=== PATIENT | male | born 1975 | race Caucasian/White ===

== ENCOUNTER → 2017-03-16 | Outpatient (CLI) | payer MEDICAID, OTHER ==
[~2017-03-16] MED LIST: Gadobenate Dimeglumine 529 MG/ML 20 ML SDV IV ONE
--- NOTE | 2017-03-19 14:21 | MR ---
EXAM DATE: 03/16/17 PATIENT'S AGE: 42 Patient: NATALIE DE PAZ Facility: [place], [place] Site Site : [id number] Study: MRI Head [id number]/2017 4:29:20 PM Ordering Physician: cruz lobmardo Final Report: Indication: Migraine headaches. Comparison: None. Technique: Multiplanar T1, T2, FLAIR and diffusion-weighted imaging. post gadolinium T1 weighted sequences. Findings: Normal brain parenchymal morphology. There are multiple discrete T2/FLAIR signal hyperintense lesions within the periventricular and subcortical white matter of both cerebral hemispheres within appearance and distribution compatible with the mildly in plaques of multiple sclerosis. Total 5 matter lesions is greater than 10. No infratentorial white matter lesions. Corresponding mild T1 hypointense lesion load. No corresponding enhancement to suggest active demyelination. Otherwise, normal brain parenchymal morphology. No intracranial hemorrhage. No abnormal ventricular dilatation. No restricted diffusion to suggest acute ischemia. Bilateral orbits are unremarkable. Normal appearing sella. Visualized paranasal sinuses mastoid air cells are unremarkable. Impression: 1. Multiple T2/FLAIR signal hyperintense lesions within the white matter within appearance and distribution compatible with the mildly and plaques of multiple sclerosis. 2. Mild T1 hypointense lesion load. No corresponding enhancement to suggest active demyelination. 3. No acute intracranial abnormality. Dictated by All Bradford MD @ Mar 16 2017 5:54PM (Electronic Signature) Report Signed by Proxy. [facility] HOSPITALStephanie
== END ==
LOC: MW.MRI 15:36
PROVIDERS: ATTEND Physician Assistant
DX: G43.109 Migraine with aura, not intractable, without status migrainosus (principal)
CPT/HCPCS: 70553; 70553-26; A9577

== ENCOUNTER 2017-11-15 06:39 | Day surgery (SDC) | payer MEDICAID, OTHER ==
[~2017-11-15 06:39] MED LIST changes: +Clindamycin Phosphate in D5W 300 MG in Premix Bag 1 BAG IV ONE; -Gadobenate Dimeglumine 529 MG/ML 20 ML SDV IV ONE; +Lactated Ringers 1,000 ML IV SCH; +Sodium Chloride 0.9% 10 ML Syringe FLUSH PRN; +Sodium Chloride 0.9% 2.5 ML Syringe FLUSH PRN
[2017-11-15] MEDS ORDERED: Clindamycin Phosphate in D5W 300 MG in Premix Bag 1 BAG IV ONE ×2 (07:15)
[2017-11-15] MEDS ORDERED: Scopolamine 1.5 MG Transdermal Patch TRDERM PRN (07:24)
[2017-11-15] MEDS ORDERED: Propofol 200 MG/20 ML SDV ONE ×2 (07:26→09:19)
[2017-11-15] MEDS ORDERED: Lidocaine 2% 5 ML SDV ONE (07:26)
[2017-11-15] MEDS ORDERED: Midazolam 1 MG/ML 2 ML SDV ONE (07:27)
[2017-11-15] MEDS ORDERED: fentaNYL 100 MCG/2 ML SDV ONE (07:27)
--- NOTE | 2017-11-15 07:27 | PCM.PREANE ---
Preanesthetic Assessment - Anesthesia/Transfusion/Family Hx Anesthesia History: Prior Anesthesia Without Reaction Family History of Anesthesia Reaction: No Transfusion History: No Prior Transfusion(s) Intubation History: Unknown - Review of Systems General: No Symptoms Pulmonary: No Symptoms Cardiovascular: No Symptoms Gastrointestinal: Abdominal Pain Neurological: No Symptoms Other: Reports: None - Physical Assessment O2 Sat by Pulse Oximetry: 99 Respiratory Rate: 16 Vital Signs: Last Vital Signs Temp 36.9 C 11/15/17 06:57 Pulse 102 H 11/15/17 06:57 Resp 16 11/15/17 06:57 BP 128/82 11/15/17 06:57 Pulse Ox 99 11/15/17 06:57 Height: 1.63 m Weight: 58.967 kg ASA Class: 2 Mental Status: Alert & Oriented x3 Airway Class: Mallampati = 3 Dentition: Reports: Normal Dentition, Moselle(s) (multiple upper front), Implants (back/left) Thyro-Mental Finger Breadths: 3 Mouth Opening Finger Breadths: 3 ROM/Head Extension: Full Lungs: Clear to Auscultation, Normal Respiratory Effort Cardiovascular: Regular Rate, Regular Rhythm - Allergies Allergies/Adverse Reactions: Allergies Allergy/AdvReac Type Severity Reaction Status Date / Time cephalexin [From Keflex] Allergy Nausea and Verified 11/12/17 15:56 Vomiting - Blood Blood Available: No - Anesthesia Plan Pre-Op Medication Ordered: None - Acknowledgements Anesthesia Type Planned: General Anesthesia Pt an Appropriate Candidate for the Planned Anesthesia: Yes Alternatives and Risks of Anesthesia Discussed w Pt/Guardian: Yes Pt/Guardian Understands and Agrees with Anesthesia Plan: Yes PreAnesthesia Questionnaire Cardiovascular History: Reports: None Gastrointestinal History: Reports: GERD Other Gastrointestinal History: elevated liver enzymes Neurological History: Reports: Migraines, MS Psychiatric History: Reports: Anxiety, Depression Endocrine/Metabolic History: Reports: Hypothyroidism Other Endocrine/Metabolic History: hypothyroidism - Past Surgical History Head Surgeries/Procedures: Reports: None GI Surgical History: Reports: Hernia, Inguinal - SUBSTANCE USE Smoking Status *Q: Current Every Day Smoker (1 ppd) Tobacco Use Within Last Twelve Months: Cigarettes Recreational Drug Use History: No - HOME MEDS Home Medications: Home Meds Levothyroxine 1 tab PO DAILY 05/20/15 [History] Ascorbic Acid [Vitamin C] 1,000 mg PO DAILY 11/12/17 [History] Butalb/Acetaminophen/Caffeine [Fdbhti-[id number]-Ermw 50-325-40] 1 tab PO ASDIRECTED PRN 11/12/17 [History] Cholecalciferol (Vitamin D3) [Vitamin D3] 1 tab PO DAILY 11/12/17 [History] ClonazePAM [KlonoPIN] 0.5 mg PO BEDTIME PRN 11/12/17 [History] Omeprazole 20 mg PO DAILY 11/12/17 [History] Ondansetron [Ondansetron ODT] 1 tab PO ASDIRECTED PRN 11/12/17 [History] Propranolol [Inderal] 20 mg PO DAILY 11/12/17 [History] SUMAtriptan Succinate [Imitrex] 50 mg PO ASDIRECTED PRN 11/12/17 [History] Venlafaxine HCl [Venlafaxine HCl ER] 75 mg PO DAILY 11/12/17 [History] Vitamin B Complex 1 tab PO DAILY 11/12/17 [History] Vitamin E 1 tab PO DAILY 11/12/17 [History] - CURRENT (IN HOUSE) MEDS Current Meds: Current Medications Lactated Ringer's (Ringers, Lactated) 1,000 mls @ 125 mls/hr IV ASDIRECTED JUVENAL Last Admin: 11/15/17 06:53 Dose: 125 mls/hr Clindamycin Phosphate 300 mg/ (Premix) 50 mls @ 96.154 mls/hr IV ONETIME ONE Stop: 11/15/17 07:46 Last Admin: 11/15/17 07:16 Dose: 96.154 mls/hr Sodium Chloride (Saline Flush) 10 ml FLUSH ASDIRECTED PRN PRN Reason: Keep Vein Open Sodium Chloride (Saline Flush) 2.5 ml FLUSH ASDIRECTED PRN PRN Reason: Keep Vein Open Discontinued Medications Clindamycin Phosphate 300 mg/ (Sodium Chloride) 52 mls @ 100 mls/hr IV ONETIME ONE Stop: 11/13/17 15:39 Clindamycin Phosphate 300 mg/ (Premix) 50 mls @ 96.154 mls/hr IV ONETIME ONE Stop: 11/13/17 16:01
[2017-11-15] MEDS ORDERED: Bupivacaine 0.5% 30 ML SDV ONE (07:35)
[2017-11-15] MEDS ORDERED: Glycopyrrolate 0.2 MG/ML SDV ONE (07:36)
[2017-11-15] MEDS ORDERED: Ketorolac 30 MG/ML SDV ONE (07:36)
[2017-11-15] MEDS ORDERED: HYDROmorphone 2 MG/ML SDV ONE (07:36)
[2017-11-15] MEDS ORDERED: Ondansetron 4 MG/2 ML SDV ONE (07:36)
[2017-11-15] MEDS ORDERED: Rocuronium 10 MG/ML 10 ML Syringe ONE (07:36)
[2017-11-15] MEDS ORDERED: Neostigmine Methylsulfate 1 MG/ML 5 ML Syringe ONE (07:36)
[2017-11-15] MEDS ORDERED: fentaNYL 100 MCG/2 ML SDV IVPUSH PRN (08:41)
[2017-11-15] MEDS ORDERED: HYDROmorphone 2 MG/ML Syringe IVPUSH ONE (08:41)
[2017-11-15 09:50] LABS: CHLORIDE,CL 104 mmol/L (98-110); SODIUM,NA 137 mmol/L (136-146)
--- NOTE | 2017-11-15 10:53 | PCM.OPNOTE ---
- General Post-Op/Procedure Note Date of Surgery/Procedure: 11/15/17 Operative Procedure(s): Laparoscopic cholecystectomy Findings: Large gallstone impacted in the cystic duct. This caused hydrops and a local inflammatory reaction. The cystic duct stone was densely adhered to the hepatic artery. Pre Op Diagnosis: Symptomatic cholelthiasis Post-Op Diagnosis: Gallbladder hydrops and impacted gallstone in the cystic duct Anesthesia Technique: General ET Tube Primary Surgeon: Gina Aranda EBL in mLs: 25 Condition: Good
[2017-11-15 12:27] VITALS: BP 110/78
--- NOTE | 2017-11-16 09:18 | OR ---
SURGEON: ALFREDO BAILEY MD DATE OF PROCEDURE: 11/15/2017 PREOPERATIVE DIAGNOSIS: Symptomatic cholelithiasis. POSTOPERATIVE DIAGNOSES: Chronic cholecystitis, hydropic gallbladder, impacted cystic duct stone. PROCEDURE PERFORMED: Laparoscopic cholecystectomy. COMMERCIAL LENDING ASSISTANT: Neel Holly M.D. ANESTHESIA: General endotracheal anesthesia. FLUIDS: 2300 mL crystalloid. URINE OUTPUT: 30 mL. ESTIMATED BLOOD LOSS: 20 mL. FINDINGS: Hydropic gallbladder containing large stones. Large gallstone impacted within the cystic duct. This caused a local inflammatory reaction and the cystic duct was adhered to the hepatic artery. COMPLICATIONS: None. INDICATIONS: The patient is a 42-year-old male, who was found in May to have elevated liver enzymes. His bilirubin was never elevated. He underwent workup for this and was found to have gallstones. He had several liver function tests performed after this, all of which were normal. The patient will be starting medication for MS and this can elevate his liver enzymes. To avoid any confusion, it was suggested that he have his gallbladder removed. The patient and I discussed the laparoscopic and open cholecystectomy procedures. Should I be unable to perform this safely laparoscopically, I will convert to open. We discussed the expected perioperative course as well as the risks including bleeding, infection, or damage to surrounding structures. The patient verbalized understanding and wishes to proceed. PROCEDURE IN DETAIL: The patient was brought into the OR and placed on the OR table in supine position. A time-out was completed verifying the patient's name, age, date of , allergies, and procedure to be performed. General endotracheal anesthesia was induced. The left arm was tucked to the patient's side and a Robles catheter was placed. The abdomen was prepped and draped in the usual standard fashion. I anesthetized the infraumbilical fold with 0.5% Marcaine plain. A curvilinear incision was made along the infraumbilical fold using a 15 blade. Cautery was used to dissect down to the subcutaneous fat. [place] retractors were used to bluntly dissect down to the level of the fascia. The fascia was elevated with Fernanda's and incised sharply with the Baugh scissors. The underlying peritoneum was grasped with a tonsil and entered sharply with the Metzenbaum scissors. A 12 mm Rosalee trocar was then placed in the abdomen and the abdomen insufflated. A 5 mm 30-degree scope was inserted in the abdomen and I inspected the area under my initial trocar incision. No damage to the surrounding structures was noted. Three more 5 mm trocars were placed under direct visualization in the following locations; one in the epigastric area, one along the right flank, and one along the right subcostal margin in the midclavicular line. The patient was placed into reverse Trendelenburg position and airplaned slightly to the left. The dome of the gallbladder was grasped with an atraumatic grasper. This was difficult given the gallbladder was thickened, inflamed and contained large stones. The infundibulum was then grasped with an atraumatic grasper through my midclavicular port and retracted inferiorly into the right. The anatomy around the infundibulum was difficult to ascertain. Using gentle blunt dissection, using a suction device, Valerie dissector, and a right angle, I was able to clear away the proximal half of the cystic plate. This helped facilitate my identification of the cystic duct. The patient was noted to have a very large impacted stone within the cystic duct. I attempted to milk this back into the gallbladder, but was unable to do so. I continued my dissection more proximally and noted that the hepatic artery was densely adhered to the cystic duct at the level of impaction. Given my aberrant anatomy and difficulty I was having delineating structures, I had my partner Dr. Neel Holly assist in the case. Using right angle and further dissection, he was able to dissect the cystic duct off the cystic artery and clear away the hepatic artery proper. Once this was performed, clips were placed on the cystic artery and it was doubly clipped and ligated with no injury to the hepatic artery. The cystic duct was then doubly clipped and ligated below the level of the impacted cystic duct stone. During the manipulation of the gallbladder, a rent was made in the infundibulum. Several stones and mucousy clear fluid was spilled into the abdomen. These were removed in piecemeal fashion as well as with my EndoCatch bag. The distal half of the gallbladder was then removed from the gallbladder fossa. The gallbladder was then placed in an EndoCatch bag and removed through the umbilical port site. I then re- inspected my operative field and it appeared hemostatic with no evidence of any biliary leakage. The abdomen was irrigated copiously with normal saline until it ran clear. The 5 mm trocars were removed under direct visualization and the abdomen allowed to desufflate. The 12 mm trocar was then removed as well. The fascia at the infraumbilical site was closed with interrupted 0 Vicryl sutures. The subcutaneous fat was closed with interrupted 3-0 Vicryl. The skin was closed with a running 4-0 Monocryl stitch. The 5 mm trocar sites were closed with interrupted 4-0 Monocryl. The patient tolerated the procedure well and was taken to the PACU in stable condition. NEY PLUMMER /[id number] AHMET
== END 2017-11-15 12:58 | disposition home or self-care (01) ==
LOC: MW.SDS 06:39
PROVIDERS: ATTEND Surgery
DX: K80.10 Calculus of gallbladder with chronic cholecystitis without obstruction (principal); R51 Headache; M54.5 Low back pain; G35 Multiple sclerosis; R74.0 Nonspecific elevation of levels of transaminase and lactic acid dehydrogenase [LDH]; K21.9 Gastro-esophageal reflux disease without esophagitis; F41.9 Anxiety disorder, unspecified; F32.9 Major depressive disorder, single episode, unspecified; E03.9 Hypothyroidism, unspecified; F17.210 Nicotine dependence, cigarettes, uncomplicated; Z88.1 Allergy status to other antibiotic agents; Z79.899 Other long term (current) drug therapy
CPT/HCPCS: 36415; 47562; 80053; 88304; A9270; J1170; J2250; J2405; J3010; J7120; 00790; J1885; J2704

== ENCOUNTER 2018-05-19 06:15 | Emergency (ER) | payer MEDICAID, OTHER ==
[2018-05-19] MEDS ORDERED: Acetaminophen/Codeine 300-30 MG Tab PO ONE (06:45)
[2018-05-19] MEDS ORDERED: SUMAtriptan 6 MG/0.5 ML SDV SUBCUT ONE (06:45)
[2018-05-19] MEDS ORDERED: Ketorolac 60 MG/2 ML SDV IM ONE (06:50)
--- NOTE | 2018-05-19 06:50 | EDM.PDOC ---
ED HPI GENERAL MEDICAL PROBLEM - General Chief Complaint: Headache Stated Complaint: MASSIVE MIGRAINE Time Seen by Provider: 05/19/18 06:41 - History of Present Illness INITIAL COMMENTS - FREE TEXT/NARRATIVE: HISTORY AND PHYSICAL: History of present illness: The patient is a 43-year-old male who presents with complaints of a migraine headache which is typical for him and he states that he usually gets them once a day. He says that he has Imitrex and Tylenol 3 that he uses for his migraines but he is only given a certain amount per month from his provider and with the frequency of his headaches he says he "rations" the medications so that they stretch out for a longer period of time. He ran out of his Imitrex and feels that if he had the Imitrex that he would have been able to treat his headache and not be here. 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 He has no fevers no chills no vomiting no chest pain no sore throat and upper respiratory symptoms. He has had no recent trauma to his head. He says the headache is diffuse and across the front part of his head. Review of systems: As per history of present illness and below otherwise all systems reviewed and negative. Past medical history: As per history of present illness and as reviewed below otherwise noncontributory. Surgical history: As per history of present illness and as reviewed below otherwise noncontributory. Social history: No reported history of drug or alcohol abuse. Family history: As per history of present illness and as reviewed below otherwise noncontributory. Physical exam: General: Well-developed well-nourished man who is nontoxic and vital signs are reviewed by me. He is photophobic, exam HEENT: Atraumatic, normocephalic, pupils reactive, negative for conjunctival pallor or scleral icterus, mucous membranes moist, throat clear, neck supple, nontender, trachea midline. Lungs: Clear to auscultation, breath sounds equal bilaterally, chest nontender. Heart: S1S2, regular rate and rhythm rhythm no overt murmurs Abdomen: Soft, nondistended, nontender. NABS Pelvis: Deferred Genitourinary: Deferred. Rectal: Deferred. Extremities: Atraumatic, range of motion without defects or deficits Neurovascular unremarkable. Neuro: Awake, alert, oriented. Cranial nerves II through XII unremarkable. Cerebellum unremarkable. Motor and sensory unremarkable throughout. Exam nonfocal. Diagnostics: [] Therapeutics: Imitrex Toradol Tylenol with codeine Impression: Migraine headache with history of same Definitive disposition and diagnosis as appropriate pending reevaluation and review of above. headache Pain Score (Numeric/FACES): 10 - Related Data Allergies Allergy/AdvReac Type Severity Reaction Status Date / Time cephalexin [From Keflex] Allergy Nausea and Verified 05/19/18 06:24 Vomiting Home Meds: Home Meds Levothyroxine 1 tab PO DAILY 05/20/15 [History] Ascorbic Acid [Vitamin C] 1,000 mg PO DAILY 11/12/17 [History] Butalb/Acetaminophen/Caffeine [Fuvgsl-Esohsapj-Bzhu 50-325-40] 1 tab PO ASDIRECTED PRN 11/12/17 [History] Cholecalciferol (Vitamin D3) [Vitamin D3] 1 tab PO DAILY 11/12/17 [History] ClonazePAM [KlonoPIN] 0.5 mg PO BEDTIME PRN 11/12/17 [History] Omeprazole 20 mg PO DAILY 11/12/17 [History] Ondansetron [Ondansetron ODT] 1 tab PO ASDIRECTED PRN 11/12/17 [History] Propranolol [Inderal] 20 mg PO DAILY 11/12/17 [History] SUMAtriptan Succinate [Imitrex] 50 mg PO ASDIRECTED PRN 11/12/17 [History] Venlafaxine HCl [Venlafaxine HCl ER] 75 mg PO DAILY 11/12/17 [History] Vitamin B Complex 1 tab PO DAILY 11/12/17 [History] Vitamin E 1 tab PO DAILY 11/12/17 [History] Past Medical History HEENT History: Reports: None Cardiovascular History: Reports: None Respiratory History: Reports: None Gastrointestinal History: Reports: GERD Other Gastrointestinal History: elevated liver enzymes Genitourinary History: Reports: None Musculoskeletal History: Reports: None Neurological History: Reports: Migraines, MS Psychiatric History: Reports: Anxiety, Depression Endocrine/Metabolic History: Reports: Hypothyroidism Other Endocrine/Metabolic History: hypothyroidism Hematologic History: Reports: None Oncologic (Cancer) History: Reports: None Dermatologic History: Reports: None - Infectious Disease History Infectious Disease History: Reports: Chicken Pox, Herpes - Past Surgical History Head Surgeries/Procedures: Reports: None GI Surgical History: Reports: Hernia, Inguinal Social & Family History - Family History Family Medical History: Noncontributory - Tobacco Use Smoking Status *Q: Current Every Day Smoker Years of Tobacco use: 15 Packs/Tins Daily: 1 - Recreational Drug Use Recreational Drug Use: No ED ROS GENERAL - Review of Systems Review Of Systems: ROS reveals no pertinent complaints other than HPI. ED EXAM, GENERAL - Physical Exam Exam: See Below (see dictation) Course - Vital Signs Last Recorded V/S: Last Vital Signs Temp 36.2 C 05/19/18 06:28 Pulse 87 05/19/18 06:28 Resp 18 05/19/18 06:28 BP 125/74 05/19/18 06:28 Pulse Ox 96 05/19/18 06:28 - Orders/Labs/Meds Orders: Active Orders 24 hr Category Date Time Status Ketorolac [Toradol] Med 05/19/18 06:50 Once 60 mg IM ONETIME ONE Meds: Medications Discontinued Medications Generic Name Dose Route Start Last Admin Trade Name [place] PRN Reason Stop Dose Admin Acetaminophen/Codeine Phosphate 2 tab 05/19/18 06:45 Tylenol With Codeine No.3 300mg/30mg PO 05/19/18 06:46 ONETIME ONE Sumatriptan Succinate 6 mg 05/19/18 06:45 Imitrex SUBCUT 05/19/18 06:46 ONETIME ONE Departure - Departure Time of Disposition: 06:51 Disposition: Home, Self-Care 01 Condition: Good Clinical Impression: Migraine - Discharge Information Referrals: Camille Duke PA-C [Primary Care Provider] - Forms: ED Department Discharge Additional Instructions: The following information is given to patients seen in the emergency department who are being discharged to home. This information is to outline your options for follow-up care. We provide all patients seen in our emergency department with a follow-up referral. The need for follow-up, as well as the timing and circumstances, are variable depending upon the specifics of your emergency department visit. If you don't have a primary care physician on staff, we will provide you with a referral. We always advise you to contact your personal physician following an emergency department visit to inform them of the circumstance of the visit and for follow-up with them and/or the need for any referrals to a consulting specialist. The emergency department will also refer you to a specialist when appropriate. This referral assures that you have the opportunity for followup care with a specialist. All of these measure are taken in an effort to provide you with optimal care, which includes your followup. Under all circumstances we always encourage you to contact your private physician who remains a resource for coordinating your care. When calling for followup care, please make the office aware that this follow-up is from your recent emergency room visit. If for any reason you are refused follow-up, please contact the [facility] emergency department at and ask to speak to the emergency department charge nurse. [facility] Primary care- Internal Medicine and Family [address] [address] Please try to get refills with her medications as you discussed with me by checking with the pharmacy later today and/or Sunday. He may also fill the prescription for the Tylenol 3 that I given you to help tide you over. Please push hydration rest and return to ER as needed and as discussed. Please follow- up with your provider or one of our clinic physicians in the next few days for reevaluation further care - My Orders Last 24 Hours: My Active Orders 05/19/18 06:50 Ketorolac [Toradol] 60 mg IM ONETIME ONE - Assessment/Plan Last 24 Hours: My Active Orders 05/19/18 06:50 Ketorolac [Toradol] 60 mg IM ONETIME ONE
[2018-05-19] MEDS ORDERED: Ondansetron 4 MG Tab.DIS PO ONE (07:04)
[2018-05-19 08:13] VITALS: BP 121/87
== END 2018-05-19 08:00 | disposition home or self-care (01) ==
LOC: MW.ED 06:15
DX: G43.909 Migraine, unspecified, not intractable, without status migrainosus (principal); K21.9 Gastro-esophageal reflux disease without esophagitis; E03.9 Hypothyroidism, unspecified; F17.210 Nicotine dependence, cigarettes, uncomplicated; Z88.1 Allergy status to other antibiotic agents; Z79.899 Other long term (current) drug therapy
CPT/HCPCS: 96372; 99283; A9270; J1885; J3030

== ENCOUNTER 2019-03-26 12:53 | Emergency (ER) | payer MEDICAID, OTHER ==
[2019-03-26 13:54] VITALS: BP 139/89
--- NOTE | 2019-03-26 14:25 | EDM.PDOC ---
<Laith Quiroga - Last Filed: 03/26/19 15:17> ED HPI GENERAL MEDICAL PROBLEM - General Chief Complaint: Abdominal Pain Stated Complaint: HERNIA Time Seen by Provider: 03/26/19 13:58 - History of Present Illness INITIAL COMMENTS - FREE TEXT/NARRATIVE: On examination patient has a right inguinal hernia that is easily reducible mild tenderness on exam no evidence of incarceration. 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 any evidence of incarceration as discussed impression is #1 right inguinal hernia #2 history of MS - Related Data Allergies Allergy/AdvReac Type Severity Reaction Status Date / Time cephalexin [From Keflex] Allergy Nausea and Verified 05/19/18 06:24 Vomiting Home Meds: Home Meds Levothyroxine 1 tab PO DAILY 05/20/15 [History] Ascorbic Acid [Vitamin C] 1,000 mg PO DAILY 11/12/17 [History] Butalb/Acetaminophen/Caffeine [Cqatgb-Twdfrxlp-Fpkv 50-325-40] 1 tab PO ASDIRECTED PRN 11/12/17 [History] Cholecalciferol (Vitamin D3) [Vitamin D3] 1 tab PO DAILY 11/12/17 [History] ClonazePAM [KlonoPIN] 0.5 mg PO BEDTIME PRN 11/12/17 [History] Omeprazole 20 mg PO DAILY 11/12/17 [History] Ondansetron [Ondansetron ODT] 1 tab PO ASDIRECTED PRN 11/12/17 [History] Propranolol [Inderal] 20 mg PO DAILY 11/12/17 [History] SUMAtriptan Succinate [Imitrex] 50 mg PO ASDIRECTED PRN 11/12/17 [History] Venlafaxine HCl [Venlafaxine HCl ER] 75 mg PO DAILY 11/12/17 [History] Vitamin B Complex 1 tab PO DAILY 11/12/17 [History] Vitamin E 1 tab PO DAILY 11/12/17 [History] Course - Vital Signs Last Recorded V/S: Last Vital Signs Temp 37.1 C 03/26/19 13:29 Pulse 107 H 03/26/19 13:29 Resp 20 03/26/19 13:29 BP 139/89 03/26/19 13:29 Pulse Ox 98 03/26/19 13:29 Departure - Departure Time of Disposition: 15:18 Disposition: Home, Self-Care 01 Condition: Good Clinical Impression: Inguinal hernia, History of multiple sclerosis - Discharge Information Instructions: Hernia, Adult, [id number] Referrals: PCP,None [Primary Care Provider] - Forms: ED Department Discharge Additional Instructions: The following information is given to patients seen in the emergency department who are being discharged to home. This information is to outline your options for follow-up care. We provide all patients seen in our emergency department with a follow-up referral. The need for follow-up, as well as the timing and circumstances, are variable depending upon the specifics of your emergency department visit. If you don't have a primary care physician on staff, we will provide you with a referral. We always advise you to contact your personal physician following an emergency department visit to inform them of the circumstance of the visit and for follow-up with them and/or the need for any referrals to a consulting specialist. The emergency department will also refer you to a specialist when appropriate. This referral assures that you have the opportunity for followup care with a specialist. All of these measure are taken in an effort to provide you with optimal care, which includes your followup. Under all circumstances we always encourage you to contact your private physician who remains a resource for coordinating your care. When calling for followup care, please make the office aware that this follow-up is from your recent emergency room visit. If for any reason you are refused follow-up, please contact the [facility] emergency department at and asked to speak to the emergency department charge nurse. 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 surgery above call to schedule appointment return as needed as discussed <Michelle Irene - Last Filed: 03/26/19 17:25> ED HPI GENERAL MEDICAL PROBLEM - General Source of Information: Reports: Patient History Limitations: Reports: No Limitations - History of Present Illness INITIAL COMMENTS - FREE TEXT/NARRATIVE: HISTORY AND PHYSICAL: History of present illness: Patient is a 44-year-old male presents to the ED today with concern of a painful hernia that occurred 3 days ago. Patient states he had issues with a hernia when he was younger in the same area. Patient states since he was younger he has not had issues. Patient states starting 3 days ago he felt a bulge coming out on the right lower abdomen. Patient states starting today became more firm and painful. Patient states he has not taken anything for his symptoms. Patient denies fever, chills, chest pain, shortness of breath, or cough. Denies headache, neck stiff ness, change in vision, syncope, or near syncope. Denies nausea, vomiting, diarrhea, constipation, or dysuria. Has not noted any blood in urine or stool. Patient has been eating and drinking appropriately. Patient has a history of multiple sclerosis and migraines. Review of systems: As per history of present illness and below otherwise all systems reviewed and negative. Past medical history: As per history of present illness and as reviewed below otherwise noncontributory. Surgical history: As per history of present illness and as reviewed below otherwise noncontributory. Social history: See social history for further information Family history: As per history of present illness and as reviewed below otherwise noncontributory. Physical exam: General: Patient is alert, oriented, and in no acute distress. Patient sitting comfortably on exam table. HEENT: Atraumatic, normocephalic, pupils equal and reactive bilaterally, negative for conjunctival pallor or scleral icterus, mucous membranes moist, TMs normal bilaterally, throat clear, neck supple, nontender, trachea midline. No drooling or trismus noted. No meningeal signs. No hot potato voice noted. Lungs: Clear to auscultation, breath sounds equal bilaterally, chest nontender. Heart: S1S2, regular rate and rhythm without overt murmur Abdomen: Soft, nondistended, nontender. Negative for masses or hepatosplenomegaly. Negative for costovertebral tenderness. Pelvis: Stable nontender. Genitourinary: Deferred. Rectal: Deferred. Skin: Intact, warm, dry. No lesions or rashes noted. Extremities: Atraumatic, negative for cords or calf pain. Neurovascular unremarkable. Neuro: Awake, alert, oriented. Cranial nerves II through XII unremarkable. Cerebellum unremarkable. Motor and sensory unremarkable throughout. Exam nonfocal. Notes: Dr. Quiroga has assumed care of patient, he will determine disposition for patient. Voices understanding and is agreeable to plan of care. Denies any further questions or concerns at this time. Diagnostics: See Dr. Quiroga note Therapeutics: See Dr. Quiroga note Prescription: See Dr. Junaid estrada Impression: Right inguinal hernia, reducible Plan: 1. You can alternate ibuprofen and Tylenol as directed for pain and discomfort. 2. Follow up with general surgery as discussed. Return to ED as needed and as discussed. Definitive disposition and diagnosis as appropriate pending reevaluation and review of above. Treatments EYELET RIVETER: Reports: Other Medication(s) Other Treatments EYELET RIVETER: meds for migraines Abdominal Pain Score (Numeric/FACES): 10 Past Medical History HEENT History: Reports: None Cardiovascular History: Reports: None Respiratory History: Reports: None Gastrointestinal History: Reports: GERD Other Gastrointestinal History: elevated liver enzymes Genitourinary History: Reports: None Musculoskeletal History: Reports: None Neurological History: Reports: Migraines, MS Psychiatric History: Reports: Anxiety, Depression Endocrine/Metabolic History: Reports: Hypothyroidism Other Endocrine/Metabolic History: hypothyroidism Hematologic History: Reports: None Oncologic (Cancer) History: Reports: None Dermatologic History: Reports: None - Infectious Disease History Infectious Disease History: Reports: Chicken Pox - Past Surgical History Head Surgeries/Procedures: Reports: None GI Surgical History: Reports: Cholecystectomy, Hernia, Inguinal Social & Family History - Family History Family Medical History: Noncontributory - Tobacco Use Smoking Status *Q: Current Every Day Smoker Years of Tobacco use: 20 Packs/Tins Daily: 1 Used Tobacco, but Quit: No Second Hand Smoke Exposure: Yes - Caffeine Use Caffeine Use: Reports: None - Recreational Drug Use Recreational Drug Use: No ED ROS GENERAL - Review of Systems Review Of Systems: ROS reveals no pertinent complaints other than HPI. ED EXAM, GI/ABD - Physical Exam Exam: See Below (see dictation)
== END 2019-03-26 15:35 | disposition home or self-care (01) ==
LOC: MW.ED 12:53
DX: K40.90 Unilateral inguinal hernia, without obstruction or gangrene, not specified as recurrent (principal); G35 Multiple sclerosis; F17.210 Nicotine dependence, cigarettes, uncomplicated; F41.9 Anxiety disorder, unspecified; F32.9 Major depressive disorder, single episode, unspecified; K21.9 Gastro-esophageal reflux disease without esophagitis; E03.9 Hypothyroidism, unspecified; Z79.899 Other long term (current) drug therapy; Z88.1 Allergy status to other antibiotic agents
CPT/HCPCS: 99282; 99283

== ENCOUNTER 2019-04-08 07:32 | Day surgery (SDC) | payer MEDICAID ==
[2019-04-08] MEDS ORDERED: Midazolam 1 MG/ML 2 ML SDV ONE (07:42)
[2019-04-08] MEDS ORDERED: Propofol 200 MG/20 ML SDV ONE (07:42)
[2019-04-08] MEDS ORDERED: fentaNYL 250 MCG/5 ML SDV ONE (07:42)
[2019-04-08] MEDS ORDERED: Dexamethasone 4 MG/ML 5 ML MDV ONE (07:43)
[2019-04-08] MEDS ORDERED: Ondansetron 4 MG/2 ML SDV ONE (07:43)
[2019-04-08] MEDS ORDERED: Lactated Ringers 1,000 ML IV SCH (08:30)
--- NOTE | 2019-04-08 08:59 | PCM.PREANE ---
Preanesthetic Assessment - Anesthesia/Transfusion/Family Hx Anesthesia History: Prior Anesthesia Without Reaction Family History of Anesthesia Reaction: No Transfusion History: No Prior Transfusion(s) Intubation History: Unknown - Review of Systems General: No Symptoms Pulmonary: No Symptoms Cardiovascular: No Symptoms Gastrointestinal: No Symptoms Neurological: No Symptoms Other: Reports: None - Physical Assessment O2 Sat by Pulse Oximetry: 100 Respiratory Rate: 16 Vital Signs: Last Vital Signs Temp 36.4 C 04/08/19 08:35 Pulse 79 04/08/19 08:35 Resp 16 04/08/19 08:35 BP 100/70 04/08/19 08:35 Pulse Ox 100 04/08/19 08:35 Height: 5 ft 4 in Weight: 59.874 kg ASA Class: 3 Mental Status: Alert & Oriented x3 Airway Class: Mallampati = 2 Dentition: Reports: Normal Dentition, Implants (multiple including upper front with loose crowns) Thyro-Mental Finger Breadths: 3 Mouth Opening Finger Breadths: 3 ROM/Head Extension: Full Lungs: Clear to Auscultation, Normal Respiratory Effort Cardiovascular: Regular Rate, Regular Rhythm - Allergies Allergies/Adverse Reactions: Allergies Allergy/AdvReac Type Severity Reaction Status Date / Time cephalexin [From Keflex] Allergy Nausea and Verified 04/07/19 11:12 Vomiting - Blood Blood Available: No - Anesthesia Plan Pre-Op Medication Ordered: None - Acknowledgements Anesthesia Type Planned: General Anesthesia Pt an Appropriate Candidate for the Planned Anesthesia: Yes Alternatives and Risks of Anesthesia Discussed w Pt/Guardian: Yes Pt/Guardian Understands and Agrees with Anesthesia Plan: Yes PreAnesthesia Questionnaire HEENT History: Reports: Other (See Below) Other HEENT History: states has "poor vision" because of MS, has upper and lower dental implants Cardiovascular History: Reports: None Respiratory History: Reports: None Gastrointestinal History: Reports: None Other Gastrointestinal History: elevated liver enzymes Genitourinary History: Reports: None Musculoskeletal History: Reports: Back Pain, Chronic Neurological History: Reports: Headaches, Chronic, Migraines, MS (memory problems, weakness, headaches - diagnosed 2-3 years ago) Psychiatric History: Reports: Anxiety, Depression, Suicide Attempt Endocrine/Metabolic History: Reports: Hypothyroidism Other Endocrine/Metabolic History: hypothyroidism Hematologic History: Reports: None Oncologic (Cancer) History: Reports: None Dermatologic History: Reports: None - Infectious Disease History Infectious Disease History: Reports: Chicken Pox - Past Surgical History Head Surgeries/Procedures: Reports: None GI Surgical History: Reports: Cholecystectomy, Hernia, Inguinal (right side in high school) - SUBSTANCE USE Smoking Status *Q: Current Every Day Smoker Tobacco Use Within Last Twelve Months: Cigarettes Recreational Drug Use History: No - HOME MEDS Home Medications: Home Meds Ascorbic Acid [Vitamin C] 1,000 mg PO DAILY 11/12/17 [History] Ondansetron [Ondansetron ODT] 8 mg PO ASDIRECTED PRN 11/12/17 [History] SUMAtriptan Succinate [Imitrex] 50 mg PO ASDIRECTED PRN 11/12/17 [History] Vitamin B Complex 1 tab PO DAILY 11/12/17 [History] Vitamin E 1 tab PO DAILY 11/12/17 [History] Cholecalciferol (Vitamin D3) [Vitamin D3] 400 unit PO DAILY 04/07/19 [History] Levothyroxine [Levothroid] 37 mcg PO DAILY 04/07/19 [History] traMADol [Ultram] 50 mg PO ASDIRECTED PRN 04/07/19 [History] - CURRENT (IN HOUSE) MEDS Current Meds: Current Medications Lactated Ringer's (Ringers, Lactated) 1,000 mls @ 100 mls/hr IV ASDIRECTED JUVENAL Discontinued Medications Dexamethasone (Dexamethasone) Confirm Administered Dose 20 mg .ROUTE .STK-MED ONE Stop: 04/08/19 07:44 Fentanyl (Sublimaze) Confirm Administered Dose 250 mcg .ROUTE .STK-MED ONE Stop: 04/08/19 07:43 Acetaminophen (Ofirmev) Confirm Administered Dose 100 mls @ as directed IV .STK- MED ONE Stop: 04/08/19 07:20 Lidocaine HCl (Xylocaine-Mpf 1%) Confirm Administered Dose 5 mls @ as directed .ROUTE .STK-MED ONE Stop: 04/08/19 07:44 Midazolam HCl (Versed 1 Mg/Ml) Confirm Administered Dose 2 mg .ROUTE .STK-MED ONE Stop: 04/08/19 07:43 Ondansetron HCl (Zofran) Confirm Administered Dose 4 mg .ROUTE .STK-MED ONE Stop: 04/08/19 07:44 Propofol (Diprivan 20 Ml) Confirm Administered Dose 200 mg .ROUTE .STK-MED ONE Stop: 04/08/19 07:43
[2019-04-08] MEDS ORDERED: Scopolamine 1.5 MG Transdermal Patch TRDERM PRN (09:00)
[2019-04-08] MEDS ORDERED: Clindamycin Phosphate in D5W 600 MG in Premix Bag 50 BAG IV ONE ×2 (09:12)
[2019-04-08] MEDS ORDERED: Glycopyrrolate 0.2 MG/ML SDV ONE (09:33)
[2019-04-08] MEDS ORDERED: Neostigmine Methylsulfate 1 MG/ML 5 ML Syringe ONE (09:33)
[2019-04-08] MEDS ORDERED: Rocuronium 100 MG/10 ML Syringe ONE (09:33)
[2019-04-08] MEDS ORDERED: fentaNYL 100 MCG/2 ML SDV IVPUSH PRN ×2 (10:03→11:02)
[2019-04-08] MEDS ORDERED: Bupivacaine 0.5% 10 ML SDV ONE (10:15)
[2019-04-08] MEDS ORDERED: ePHEDrine 50 MG/ML SDV ONE (10:59)
[2019-04-08] MEDS ORDERED: Phenylephrine/Normal Saline 100 MCG/ML 10 ML Syringe ONE (11:01)
[2019-04-08] MEDS ORDERED: Octyl 2-Cyanoacrylate 1 Tube ONE (11:52)
--- NOTE | 2019-04-08 12:01 | PCM.OPNOTE ---
- General Post-Op/Procedure Note Date of Surgery/Procedure: 04/08/19 Operative Procedure(s): Right inguinal hernia repair Findings: Indirect right inguinal hernia with a cord lipoma Pre Op Diagnosis: Right inguinal hernia Post-Op Diagnosis: same Anesthesia Technique: General ET Tube Primary Surgeon: Gina Aranda Fluid Replacement, Intraop: 1,000 EBL in mLs: 10 Condition: Good
[2019-04-08 14:39] VITALS: BP 98/56
--- NOTE | 2019-04-08 15:03 | OR ---
SURGEON: GINA ARANDA MD DATE OF PROCEDURE: 04/08/2019 PREOPERATIVE DIAGNOSIS: Right inguinal hernia. POSTOPERATIVE DIAGNOSIS: Right inguinal hernia. PROCEDURE PERFORMED: Right inguinal hernia repair. PRIMARY SURGEON: Gina Aranda MD. ANESTHESIA: General endotracheal anesthesia. FLUIDS: 1000 mL crystalloid. ESTIMATED BLOOD LOSS: 10 mL. FINDINGS: Right indirect inguinal hernia and cord lipoma. COMPLICATIONS: None. INDICATIONS: The patient is a 44-year-old male who presents with new onset of a right groin bulge. This is quite painful. He underwent a CT of the pelvis that shows a small right inguinal hernia containing a small piece of bowel in it. The decision was made to proceed with surgery. I explained the procedure, expected perioperative course, and risks including bleeding, infection, or damage to surrounding structures. He verbalized understanding and wishes to proceed. PROCEDURE IN DETAIL: The patient was brought into the OR and placed on the OR table in supine position. A time-out was completed verifying the patient's name, age, date of , allergies, and procedure to be performed. General endotracheal anesthesia was induced. The lower abdomen and groin were prepped and draped in usual standard fashion. I anesthetized the area over my planned skin incision with 0.5% Marcaine plain. An oblique incision was made 1 fingerbreadth above the inguinal ligament. This was carried down to the level of the fascia using cautery. Once I identified the external oblique, I opened it along its fibers using a 15 blade. Dissection was then carried out underneath the external oblique down to the external ring. I then dissected both superiorly and inferiorly to free up the cord structures. I then encircled the cord structures with a Grand Tower drain. Then, using careful dissection, I dissected along the anterior surface of the cord structures. I immediately identified the spermatic vessels and cord. Great care was taken not to injure these. A cord lipoma was discovered. This was dissected down to the level of the internal ring and transected using electrocautery. It was sent to Pathology, labeled as cord lipoma. I identified a small sac consistent with an indirect inguinal hernia. This was empty and did not contain any intraabdominal contents. This was bluntly dissected free from the surrounding structures and reduced back into the abdomen. A small plug and patch was brought into the field. The plug was too large for the small defect along the internal ring and so the area was closed and reinforced with just the patch alone. The patch was then secured to the pubic tubercle medially with an 0 Ethibond suture. The patch was then secured superiorly to the conjoined tendon and transversalis. It was secured inferiorly to the inguinal ligament ridge. The ends were then brought around the cord structures at the internal ring and secured with suture there as well. The opening through the mesh was checked for tightness. There was enough space to allow the cord structures to pass through the mesh with no evidence of strangulation. The opening was just large enough to accept the tip of my finger. The wound was then irrigated with normal saline. The external oblique was closed with a running 3-0 Vicryl suture down to the level of the external ring. A Valsalva maneuver was performed and the repair stayed intact. The subcutaneous fat layer was closed with a running 3-0 Vicryl suture. The skin was then closed with a running 4-0 Monocryl stitch. Dermabond and sterile dressings were applied. The patient tolerated the procedure well and was transferred to the PACU in stable condition. All counts were complete and correct at the end of the case. NEY PLUMMER /[id number] AHMET
== END 2019-04-08 14:29 | disposition home or self-care (01) ==
LOC: MW.SDS 07:32
PROVIDERS: ATTEND Surgery
DX: K40.90 Unilateral inguinal hernia, without obstruction or gangrene, not specified as recurrent (principal); D17.6 Benign lipomatous neoplasm of spermatic cord; E03.9 Hypothyroidism, unspecified; F17.210 Nicotine dependence, cigarettes, uncomplicated; F41.9 Anxiety disorder, unspecified; G43.709 Chronic migraine without aura, not intractable, without status migrainosus; Z88.1 Allergy status to other antibiotic agents; Z79.899 Other long term (current) drug therapy
CPT/HCPCS: 49505; A4217; A9270; C1781; J0131; J0330; J1100; J2001; J2250; J2370; J2405; J2704; J3010; J3490; J7120

== ENCOUNTER 2019-09-28 11:03 | Emergency (ER) | payer MEDICAID, OTHER ==
[2019-09-28] MEDS ORDERED: Ondansetron 4 MG Tab.DIS PO ONE (11:43)
[2019-09-28] MEDS ORDERED: Acetaminophen/Codeine 300-30 MG Tab PO ONE (11:44)
[2019-09-28] MEDS ORDERED: SUMAtriptan 50 MG Tab PO ONE (11:46)
[2019-09-28 13:07] VITALS: BP 124/84; PULSE 90
--- NOTE | 2019-09-28 13:24 | EDM.PDOC ---
ED HPI GENERAL MEDICAL PROBLEM - General Chief Complaint: Headache Stated Complaint: MED CLEAR Time Seen by Provider: 09/28/19 11:16 Source of Information: Reports: Patient History Limitations: Reports: No Limitations - History of Present Illness INITIAL COMMENTS - FREE TEXT/NARRATIVE: Presents reporting a "daily migraine". The patient states that he has a headache every day and is being treated by his primary provider for the headache with a combination of sumatriptan, for Tylenol No. 3 and a Zofran tablet. This is been very effective but due to insurance limitations he has run out of his medication. He is here with law enforcement as when he called 911 he was reported to have said that he would "kill myself" due to the pain. He stated that the pain was so bad he felt like "stabbing a knife through my heart ". He has had suicidal ideation in the past and so law enforcement brought him in. On interview, the patient states that although he has had self-harm thoughts for a long time he has never had a plan. He states that he only said that today because his headache was so bad he couldn't stand it. This is his usual headache pattern which includes a throbbing all over his head and some blurred vision but no nausea and photo or phonophobia or focal weakness. He has a history of MS, depression, and migraine headache as well as gender dysphoria. Headache Pain Score (Numeric/FACES): 4 - Related Data Allergies Allergy/AdvReac Type Severity Reaction Status Date / Time cephalexin [From Keflex] Allergy Nausea and Verified 09/28/19 11:20 Vomiting Home Meds: Home Meds Ascorbic Acid [Vitamin C] 1,000 mg PO DAILY 11/12/17 [History] Ondansetron [Ondansetron ODT] 8 mg PO ASDIRECTED PRN 11/12/17 [History] SUMAtriptan Succinate [Imitrex] 50 mg PO ASDIRECTED PRN 11/12/17 [History] Vitamin B Complex 1 tab PO DAILY 11/12/17 [History] Vitamin E 1 tab PO DAILY 11/12/17 [History] Cholecalciferol (Vitamin D3) [Vitamin D3] 400 unit PO DAILY 04/07/19 [History] Levothyroxine [Levothroid] 37 mcg PO DAILY 04/07/19 [History] traMADol [Ultram] 50 mg PO ASDIRECTED PRN 04/07/19 [History] Acetaminophen with Codeine [Tylenol with Codeine #3 Tablet] 4 tab PO DAILY PRN # 12 tablet 09/28/19 [Rx] Ondansetron [Zofran ODT] 1 tab PO DAILY PRN #3 tab.dis 09/28/19 [Rx] SUMAtriptan [Imitrex] 50 mg PO DAILY PRN #3 tablet 09/28/19 [Rx] Past Medical History HEENT History: Reports: Other (See Below) Other HEENT History: states has "poor vision" because of MS, has upper and lower dental implants Cardiovascular History: Reports: None Respiratory History: Reports: None Gastrointestinal History: Reports: None Other Gastrointestinal History: elevated liver enzymes Genitourinary History: Reports: None Musculoskeletal History: Reports: Back Pain, Chronic Neurological History: Reports: Headaches, Chronic, Migraines, MS Psychiatric History: Reports: Anxiety, Depression, Suicide Attempt, Suicidal Ideation Endocrine/Metabolic History: Reports: Hypothyroidism Other Endocrine/Metabolic History: hypothyroidism Hematologic History: Reports: None Oncologic (Cancer) History: Reports: None Dermatologic History: Reports: None - Infectious Disease History Infectious Disease History: Reports: Chicken Pox, Measles, Mumps, Shingles - Past Surgical History Head Surgeries/Procedures: Reports: None GI Surgical History: Reports: Cholecystectomy, Hernia, Inguinal Social & Family History - Family History Family Medical History: Noncontributory - Tobacco Use Smoking Status *Q: Current Every Day Smoker Years of Tobacco use: 25 Packs/Tins Daily: 1 - Caffeine Use Caffeine Use: Reports: None - Recreational Drug Use Recreational Drug Use: Yes Drug Use in Last 12 Months: Yes Recreational Drug Type: Reports: Marijuana/Hashish, Methamphetamine Recreational Drug Use Frequency: Not Used In Over 6 Months ED ROS GENERAL - Review of Systems Review Of Systems: Comprehensive ROS is negative, except as noted in HPI. - Physical Exam Exam: See Below Exam Limited By: No Limitations General Appearance: Alert, No Apparent Distress Ears: Normal External Exam Nose: Normal Inspection Throat/Mouth: Normal Inspection Head Exam: Atraumatic, Normocephalic Neck: Normal Inspection. No: Lymphadenopathy (L), Lymphadenopathy (R) Respiratory/Chest: No Respiratory Distress, Lungs Clear, Normal Breath Sounds Cardiovascular: Normal Peripheral Pulses, Regular Rate, Rhythm, No Murmur Neuro Exam (Abbreviated): Alert, Oriented, CN II-XII Intact, Normal Gait, No Motor/Sensory Deficits, Other (Negative Romberg. [id number] [id number] and rapid alternating movements intact) Back Exam: Normal Inspection Extremities: Normal Inspection Psychiatric: Normal Affect, Normal Mood Skin Exam: Warm, Dry, Intact, Normal Color, No Rash Course - Vital Signs Last Recorded V/S: Last Vital Signs Temp 37.1 C 09/28/19 12:50 Pulse 90 09/28/19 12:50 Resp 16 09/28/19 12:50 BP 124/84 09/28/19 12:50 Pulse Ox 97 09/28/19 12:50 - Orders/Labs/Meds Meds: Medications Discontinued Medications Generic Name Dose Route Start Last Admin Trade Name Raleigh PRN Reason Stop Dose Admin Acetaminophen/Codeine Phosphate 4 tab 09/28/19 11:44 09/28/19 12:04 Tylenol With Codeine No.3 300mg/30mg PO 09/28/19 11:45 4 tab ONETIME ONE Administration Ondansetron HCl 4 mg 09/28/19 11:43 09/28/19 12:04 Zofran Odt PO 09/28/19 11:44 4 mg ONETIME ONE Administration Sumatriptan Succinate 50 mg 09/28/19 11:46 09/28/19 12:05 Imitrex PO 09/28/19 11:47 50 mg ONETIME ONE Administration - Re-Assessments/Exams Free Text/Narrative Re-Assessment/Exam: 09/28/19 13:25 Within an hour of taking the medications patient's pain dropped from 10/10 out of 4/10 on the 1-10 scale. He assures me that he has no self-harm ideations at this time as his pain as "much better". Departure - Departure Time of Disposition: 13:27 Disposition: Home, Self-Care 01 Condition: Good Clinical Impression: Migraine - Discharge Information Prescriptions: Acetaminophen with Codeine [Tylenol with Codeine #3 Tablet] 4 tab PO DAILY PRN # 12 tablet PRN Reason: Headache Ondansetron [Zofran ODT] 1 tab PO DAILY PRN #3 tab.dis PRN Reason: Headache SUMAtriptan [Imitrex] 50 mg PO DAILY PRN #3 tablet PRN Reason: Headache Instructions: Recurrent Migraine Headache, [id number] Referrals: Shahzad Alaniz MD [Primary Care Provider] - Forms: ED Department Discharge Additional Instructions: The following information is given to patients seen in the emergency department who are being discharged to home. This information is to outline your options for follow-up care. We provide all patients seen in our emergency department with a follow-up referral. The need for follow-up, as well as the timing and circumstances, are variable depending upon the specifics of your emergency department visit. If you don't have a primary care physician on staff, we will provide you with a referral. We always advise you to contact your personal physician following an emergency department visit to inform them of the circumstance of the visit and for follow-up with them and/or the need for any referrals to a consulting specialist. The emergency department will also refer you to a specialist when appropriate. This referral assures that you have the opportunity for follow-up care with a specialist. All of these measure are taken in an effort to provide you with optimal care, which includes your follow-up. Under all circumstances we always encourage you to contact your private physician who remains a resource for coordinating your care. When calling for follow-up care, please make the office aware that this follow-up is from your recent emergency room visit. If for any reason you are refused follow-up, please contact the [facility] Emergency Department at and asked to speak to the emergency department charge nurse. 1. Follow-up with primary care for medication refills
== END 2019-09-28 13:37 | disposition home or self-care (01) ==
LOC: MW.ED 11:03
DX: G43.909 Migraine, unspecified, not intractable, without status migrainosus (principal); E03.9 Hypothyroidism, unspecified; F41.9 Anxiety disorder, unspecified; F32.9 Major depressive disorder, single episode, unspecified; F17.210 Nicotine dependence, cigarettes, uncomplicated; Z79.899 Other long term (current) drug therapy; Z88.1 Allergy status to other antibiotic agents
CPT/HCPCS: 99283; A9270; 99284

== ENCOUNTER 2020-03-10 13:55 | Emergency (ER) | payer MEDICAID ==
[2020-03-10] MEDS ORDERED: Sodium Chloride 0.9% 1,000 ML IV ONE (14:03)
[2020-03-10] MEDS ORDERED: Ondansetron 4 MG/2 ML SDV IVPUSH ONE (14:32)
[2020-03-10] MEDS ORDERED: Ketorolac 30 MG/ML SDV IVPUSH ONE (14:32)
--- NOTE | 2020-03-10 14:39 | EDM.PDOC ---
ED HPI GENERAL MEDICAL PROBLEM - General Chief Complaint: Abdominal Pain Stated Complaint: RT SIDE PAIN Time Seen by Provider: 03/10/20 14:01 Source of Information: Reports: Patient History Limitations: Reports: No Limitations - History of Present Illness INITIAL COMMENTS - FREE TEXT/NARRATIVE: HISTORY AND PHYSICAL: History of present illness: Patient is a 45-year-old male who presents to the emergency room with complaints of right upper quadrant and flank pain that started 3 months ago but worse today. He reports that the pain is intermittent and feels like " something is in there under my ribs". He has not had this evaluated by a provider. History of cholecystectomy. Denies any difficulty voiding, hematuria , constipation or diarrhea. Has not noted any blood in urine or stool. He also has a secondary complaint of a migraine headache which he typically gets 3 to 5/ week. Mild nausea associated with this. No light or noise sensitivity. States he takes Imitrex, Zofran and Tylenol #3 which usually helps resolve the discomfort. He attributes these migraines to his history of MS which he sees primary care for management of this. Today's migraine is not unusual and describes it as "typical" of his usually migraine headaches. Patient denies any fever, chills, change in vision, syncope or near syncope. Denies any chest pain , back pain, shortness of breath or cough. Patient has been eating and drinking appropriately. Review of systems: As per history of present illness and below otherwise all systems reviewed and negative. Past medical history: As per history of present illness and as reviewed below otherwise noncontributory. Surgical history: As per history of present illness and as reviewed below otherwise noncontributory. Social history: See social history for further information Family history: As per history of present illness and as reviewed below otherwise noncontributory. Physical exam: General: Well-developed and well-nourished 45-year-old male. Alert and oriented. Nontoxic-appearing and in no acute distress. HEENT: Atraumatic, normocephalic, pupils equal and reactive bilaterally, negative for conjunctival pallor or scleral icterus, mucous membranes dry, TMs normal bilaterally, throat clear, neck supple, nontender, trachea midline. No drooling or trismus noted. No meningeal signs. No hot potato voice noted. Lungs: Clear to auscultation, breath sounds equal bilaterally, tenderness with palpation of the right lower anterior chest wall. Heart: S1S2, regular rate and rhythm without overt murmur Abdomen: Soft, nondistended, RUQ tenderness. Negative for masses or hepatosplenomegaly. Right flank costovertebral tenderness. Skin: Intact, warm, dry. No lesions or rashes noted. Extremities: Atraumatic, moves all extremities per self without difficulty or deficits, negative for cords or calf pain. Neurovascular unremarkable. Neuro: Awake, alert, oriented. Cranial nerves II through XII unremarkable. Cerebellum unremarkable. Motor and sensory unremarkable throughout. Exam nonfocal. Notes: Has had an MRI in 2018 and 06/2019, no acute findings have been noted. Patient state "I need this checked out... I feel like there is something underneath my ribs... I can feel it". He is also requesting IV fluid hydration, "I haven't drank alot in the past few days". CT scan shows no acute findings.Patient's thyroid is low at this time, this was previously drawn approximately 2 months ago and was very high. He states his primary care provider has been adjusting his Synroid medication. Patient now reports that his Tylenol with codeine has been out for approximately 1 week and is requesting a refill on this medication until he can see his PCP on 2019. Supportive care measures were reviewed and discussed. Voices understanding and is agreeable to plan of care. Denies any further questions or concerns at this time. Diagnostics: CBC, CMP, UA, CT abd/pelvis Therapeutics: IV fluids, Zofran, Toradol Prescription: Tylenol #3 (#8) Zofran (#8) Impression: Abdominal Pain Headache Encounter for medication refill Low TSH Plan: 1. Please use Tylenol and/or Ibuprofen as needed for pain and fever management. 2. Get plenty of Rest. Encourage fluids to prevent dehydration. 3. Please follow up with your primary care provider. Further refills of medications need to happen by Dr Pedroza. Also, mention your TSH was low ( meaning your dosage may need to be changed). 4. Return to the ED as needed as discussed. Definitive disposition and diagnosis as appropriate pending reevaluation and review of above. Duration: Chronic Right Abdominal Pain Score (Numeric/FACES): 10 - Related Data Allergies Allergy/AdvReac Type Severity Reaction Status Date / Time cephalexin [From Keflex] Allergy Nausea and Verified 09/28/19 11:20 Vomiting Home Meds: Home Meds Ascorbic Acid [Vitamin C] 1,000 mg PO DAILY 11/12/17 [History] Vitamin E 1 tab PO DAILY 11/12/17 [History] Cholecalciferol (Vitamin D3) [Vitamin D3] 400 unit PO DAILY 04/07/19 [History] Levothyroxine [Levothroid] 37 mcg PO DAILY 04/07/19 [History] Acetaminophen with Codeine [Tylenol with Codeine #3 Tablet] 4 tab PO DAILY PRN # 12 tablet 09/28/19 [Rx] SUMAtriptan [Imitrex] 50 mg PO DAILY PRN #3 tablet 09/28/19 [Rx] Acetaminophen with Codeine [Tylenol with Codeine #3 Tablet] 1 each PO Q6HR PRN # 8 tablet 03/10/20 [Rx] Ondansetron [Zofran ODT] 1 tab PO DAILY PRN 03/10/20 [History] Ondansetron [Zofran ODT] 4 mg PO Q6H PRN #8 tab.dis 03/10/20 [Rx] Past Medical History HEENT History: Reports: Other (See Below) Other HEENT History: states has "poor vision" because of MS, has upper and lower dental implants Cardiovascular History: Reports: None Respiratory History: Reports: None Gastrointestinal History: Reports: None Other Gastrointestinal History: elevated liver enzymes Genitourinary History: Reports: None Musculoskeletal History: Reports: Back Pain, Chronic Neurological History: Reports: Headaches, Chronic, Migraines, MS Psychiatric History: Reports: Anxiety, Depression, Suicide Attempt, Suicidal Ideation Endocrine/Metabolic History: Reports: Hypothyroidism Other Endocrine/Metabolic History: hypothyroidism Hematologic History: Reports: None Oncologic (Cancer) History: Reports: None Dermatologic History: Reports: None - Infectious Disease History Infectious Disease History: Reports: Chicken Pox - Past Surgical History Head Surgeries/Procedures: Reports: None GI Surgical History: Reports: Cholecystectomy, Hernia, Inguinal Social & Family History - Family History Family Medical History: Noncontributory - Tobacco Use Smoking Status *Q: Current Every Day Smoker Years of Tobacco use: 20 Packs/Tins Daily: 1 - Caffeine Use Caffeine Use: Reports: Coffee - Recreational Drug Use Recreational Drug Use: No ED ROS GENERAL - Review of Systems Review Of Systems: Comprehensive ROS is negative, except as noted in HPI. ED EXAM, GI/ABD - Physical Exam Exam: See Below (See dictation) Course - Vital Signs Last Recorded V/S: Last Vital Signs Temp 98.0 F 03/10/20 14:19 Pulse 99 03/10/20 16:11 Resp 20 03/10/20 16:11 BP 109/78 03/10/20 16:11 Pulse Ox 100 03/10/20 16:11 - Orders/Labs/Meds Labs: Laboratory Tests 03/10/20 03/10/20 03/10/20 Range/Units 14:35 14:35 14:35 WBC 10.32 (4.0-11.0) K/uL RBC 5.02 (4.50-5.90) M/uL Hgb 11.2 L (13.0-17.0) g/dL Hct 37.5 L (38.0-50.0) % MCV 74.7 L (80.0-98.0) fL MCH 22.3 L (27.0-32.0) pg MCHC 29.9 L (31.0-37.0) g/dL RDW Std Deviation 52.7 (28.0-62.0) fl RDW Coeff of Paulo 19 H (11.0-15.0) % Plt Count 573 H (150-400) K/uL MPV 8.90 (7.40-12.00) fL Neut % (Auto) 67.6 (48.0-80.0) % Lymph % (Auto) 17.3 (16.0-40.0) % Charlton % (Auto) 11.4 (0.0-15.0) % Eos % (Auto) 2.9 (0.0-7.0) % Baso % (Auto) 0.8 (0.0-1.5) % Neut # (Auto) 7.0 H (1.4-5.7) K/uL Lymph # (Auto) 1.8 (0.6-2.4) K/uL Charlton # (Auto) 1.2 H (0.0-0.8) K/uL Eos # (Auto) 0.3 (0.0-0.7) K/uL Baso # (Auto) 0.1 (0.0-0.1) K/uL Nucleated RBC % 0.0 /100WBC Nucleated RBCs # 0 K/uL Sodium 137 (136-148) mmol/L Potassium 3.9 (3.5-5.1) mmol/L Chloride 102 (98-107) mmol/L Carbon Dioxide 25.5 (21.0-32.0) mmol/L BUN 11 (7.0-18.0) mg/dL Creatinine 1.1 (0.8-1.3) mg/dL Est Cr Clr Drug Dosing 68.73 mL/min Estimated GFR (MDRD) > 60.0 ml/min Glucose 105 (74-106) mg/dL Calcium 8.9 (8.5-10.1) mg/dL Total Bilirubin 0.3 (0.2-1.0) mg/dL AST 14 L (15-37) IU/L ALT 20 (14-63) IU/L Alkaline Phosphatase 128 H (46-116) U/L Total Protein 7.5 (6.4-8.2) g/dL Albumin 3.5 (3.4-5.0) g/dL Globulin 4.0 (2.6-4.0) g/dL Albumin/Globulin Ratio 0.9 (0.9-1.6) TSH 3rd Generation 0.07 L (0.36-3.74) uIU/mL Urine Color Urine Appearance Urine pH (5.0-8.0) Ur Specific Huger (1.001-1.035) Urine Protein (NEGATIVE) mg/dL Urine Glucose (UA) (NEGATIVE) mg/dL Urine Ketones (NEGATIVE) mg/dL Urine Occult Blood (NEGATIVE) Urine Nitrite (NEGATIVE) Urine Bilirubin (NEGATIVE) Urine Urobilinogen (<2.0) EU/dL Ur Leukocyte Esterase (NEGATIVE) 03/10/20 Range/Units 16:32 WBC (4.0-11.0) K/uL RBC (4.50-5.90) M/uL Hgb (13.0-17.0) g/dL Hct (38.0-50.0) % MCV (80.0-98.0) fL MCH (27.0-32.0) pg MCHC (31.0-37.0) g/dL RDW Std Deviation (28.0-62.0) fl RDW Coeff of Paulo (11.0-15.0) % Plt Count (150-400) K/uL MPV (7.40-12.00) fL Neut % (Auto) (48.0-80.0) % Lymph % (Auto) (16.0-40.0) % Charlton % (Auto) (0.0-15.0) % Eos % (Auto) (0.0-7.0) % Baso % (Auto) (0.0-1.5) % Neut # (Auto) (1.4-5.7) K/uL Lymph # (Auto) (0.6-2.4) K/uL Charlton # (Auto) (0.0-0.8) K/uL Eos # (Auto) (0.0-0.7) K/uL Baso # (Auto) (0.0-0.1) K/uL Nucleated RBC % /100WBC Nucleated RBCs # K/uL Sodium (136-148) mmol/L Potassium (3.5-5.1) mmol/L Chloride (98-107) mmol/L Carbon Dioxide (21.0-32.0) mmol/L BUN (7.0-18.0) mg/dL Creatinine (0.8-1.3) mg/dL Est Cr Clr Drug Dosing mL/min Estimated GFR (MDRD) ml/min Glucose (74-106) mg/dL Calcium (8.5-10.1) mg/dL Total Bilirubin (0.2-1.0) mg/dL AST (15-37) IU/L ALT (14-63) IU/L Alkaline Phosphatase (46-116) U/L Total Protein (6.4-8.2) g/dL Albumin (3.4-5.0) g/dL Globulin (2.6-4.0) g/dL Albumin/Globulin Ratio (0.9-1.6) TSH 3rd Generation (0.36-3.74) uIU/mL Urine Color YELLOW Urine Appearance CLEAR Urine pH 7.0 (5.0-8.0) Ur Specific Huger 1.010 (1.001-1.035) Urine Protein NEGATIVE (NEGATIVE) mg/dL Urine Glucose (UA) NEGATIVE (NEGATIVE) mg/dL Urine Ketones NEGATIVE (NEGATIVE) mg/dL Urine Occult Blood NEGATIVE (NEGATIVE) Urine Nitrite NEGATIVE (NEGATIVE) Urine Bilirubin NEGATIVE (NEGATIVE) Urine Urobilinogen 0.2 (<2.0) EU/dL Ur Leukocyte Esterase NEGATIVE (NEGATIVE) Meds: Medications Discontinued Medications Generic Name Dose Route Start Last Admin Trade Name Mendezq PRN Reason Stop Dose Admin Acetaminophen/Codeine Phosphate 1 tab 03/10/20 16:30 Tylenol With Codeine No.3 300mg/30mg PO 03/10/20 16:31 ONETIME ONE Sodium Chloride 1,000 mls @ 999 mls/hr 03/10/20 14:03 03/10/20 14:31 Normal Saline IV 03/10/20 15:03 999 mls/hr STAT ONE Administration Ketorolac Tromethamine 30 mg 03/10/20 14:32 03/10/20 15:02 Toradol IVPUSH 03/10/20 14:33 30 mg ONETIME ONE Administration Ondansetron HCl 4 mg 03/10/20 14:32 03/10/20 15:02 Zofran IVPUSH 03/10/20 14:33 4 mg ONETIME ONE Administration Departure - Departure Time of Disposition: 16:44 Disposition: Home, Self-Care 01 Clinical Impression: Encounter for medication refill, Low TSH level Abdominal pain Qualifiers: Abdominal location: right upper quadrant Qualified Code(s): R10.11 - Right upper quadrant pain Migraine Qualifiers: Migraine type: without aura Status migrainosus presence: without status migrainosus Intractability: not intractable Qualified Code(s): G43.009 - Migraine without aura, not intractable, without status migrainosus - Discharge Information Prescriptions: Acetaminophen with Codeine [Tylenol with Codeine #3 Tablet] 1 each PO Q6HR PRN # 8 tablet PRN Reason: Headache Ondansetron [Zofran ODT] 4 mg PO Q6H PRN #8 tab.dis PRN Reason: Nausea Instructions: Migraine Headache, [id number], Abdominal Pain, Adult, Easy-to- Read Referrals: Shahzad Alaniz MD [Primary Care Provider] - Forms: ED Department Discharge Additional Instructions: The following information is given to patients seen in the emergency department who are being discharged to home. This information is to outline your options for follow-up care. We provide all patients seen in our emergency department with a follow-up referral. The need for follow-up, as well as the timing and circumstances, are variable depending upon the specifics of your emergency department visit. If you don't have a primary care physician on staff, we will provide you with a referral. We always advise you to contact your personal physician following an emergency department visit to inform them of the circumstance of the visit and for follow-up with them and/or the need for any referrals to a consulting specialist. The emergency department will also refer you to a specialist when appropriate. This referral assures that you have the opportunity for follow-up care with a specialist. All of these measure are taken in an effort to provide you with optimal care, which includes your follow-up. Under all circumstances we always encourage you to contact your private physician who remains a resource for coordinating your care. When calling for follow-up care, please make the office aware that this follow-up is from your recent emergency room visit. If for any reason you are refused follow-up, please contact the [facility] Emergency Department at and asked to speak to the emergency department charge nurse. [facility] [address] [place] [address] [place] [address] 1. Please use Tylenol and/or Ibuprofen as needed for pain and fever management. 2. Get plenty of Rest. Encourage fluids to prevent dehydration. 3. Please follow up with your primary care provider. Further refills of medications need to happen by Dr Pedroza. Also, mention your TSH was low ( meaning your dosage may need to be changed). 4. Return to the ED as needed as discussed. Sepsis Event Note - Evaluation Sepsis Screening Result: No Definite Risk - Focused Exam Vital Signs: Vital Signs Temp Pulse Resp BP Pulse Ox 03/10/20 16:11 99 20 109/78 100 03/10/20 14:19 98.0 F 111 H 16 112/72 100 Date Exam was Performed: 03/10/20 Time Exam was Performed: 16:44
[2020-03-10 15:05] LABS: BLOOD UREA NITROGEN,BUN 11 mg/dL (7.0-18.0); CARBON DIOXIDE,CO2 25.5 mmol/L (21.0-32.0); CHLORIDE,CL 102 mmol/L (98-107); GLUCOSE RANDOM 105 mg/dL (74-106); POTASSIUM,K 3.9 mmol/L (3.5-5.1); SODIUM,NA 137 mmol/L (136-148)
--- NOTE | 2020-03-10 16:05 | CT ---
CT abdomen and pelvis Technique: Multiple axial sections were obtained from above the dome of the diaphragm inferiorly through the pubic symphysis intravenous and oral contrast not utilized. Comparison: No prior abdominal imaging is available. Findings: Kidneys show no abnormal calcifications. Cyst is noted within the mid right kidney measuring 1.2 cm. No ureteral dilatation or ureteral stone is seen.. Noncontrast appearance of the liver shows no focal parenchymal abnormality. Spleen appears within normal limits. Surgical clips are seen from prior cholecystectomy. Adrenal glands show no nodule. Pancreas shows no discrete abnormality. Aorta shows no aneurysm. No retroperitoneal adenopathy or mesenteric abnormalities are seen. Appendix is not visualized with certainty. No pelvic mass or adenopathy is seen. No free fluid or inflammatory change is appreciated. Bone window settings were reviewed which show no acute osseous finding. Impression: 1. No renal calculi, ureteral dilatation or ureteral stone is seen. 2. Nothing acute is appreciated on noncontrast CT study of the abdomen and pelvis. Diagnostic code #2 This report was dictated in MDT
[2020-03-10] MEDS ORDERED: Acetaminophen/Codeine 300-30 MG Tab PO ONE (16:30)
[2020-03-10 16:47] VITALS: BP 112/67; PULSE 86
== END 2020-03-10 16:55 | disposition home or self-care (01) ==
LOC: MW.ED 13:55
DX: R10.11 Right upper quadrant pain (principal); G43.009 Migraine without aura, not intractable, without status migrainosus; R74.8 Abnormal levels of other serum enzymes; E03.9 Hypothyroidism, unspecified; F17.210 Nicotine dependence, cigarettes, uncomplicated; Z79.899 Other long term (current) drug therapy; Z88.1 Allergy status to other antibiotic agents; Z76.0 Encounter for issue of repeat prescription
CPT/HCPCS: 36415; 74176; 80053; 81003; 84443; 85025; 96374; 96375; 99284; A9270; J1885; J2405; J7030; 99283

== ENCOUNTER 2020-03-15 14:47 | Emergency (ER) | payer MEDICAID ==
[2020-03-15] MEDS ORDERED: Ketorolac 30 MG/ML SDV IVPUSH ONE (15:01)
[2020-03-15] MEDS ORDERED: Sodium Chloride 0.9% 1,000 ML IV ONE (15:01)
[2020-03-15] MEDS ORDERED: Ondansetron 4 MG/2 ML SDV IVPUSH ONE (15:03)
--- NOTE | 2020-03-15 15:06 | EDM.PDOC ---
ED HPI GENERAL MEDICAL PROBLEM - General Chief Complaint: Abdominal Pain Stated Complaint: side/abdominal pain Time Seen by Provider: 03/15/20 15:04 History Limitations: Reports: No Limitations - History of Present Illness INITIAL COMMENTS - FREE TEXT/NARRATIVE: 45-year-old presents to the emergency room right upper quadrant pain for the past 2 weeks. Patient states it goes to his back little nauseated. 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 upper abd Pain Score (Numeric/FACES): 8 - Related Data Allergies Allergy/AdvReac Type Severity Reaction Status Date / Time cephalexin [From Keflex] Allergy Nausea and Verified 03/15/20 14:56 Vomiting Home Meds: Home Meds Levothyroxine [Levothroid] 37 mcg PO DAILY 04/07/19 [History] Cyclobenzaprine [Flexeril] 10 mg PO BEDTIME #10 tab 03/15/20 [Rx] Ibuprofen [Motrin] 600 mg PO Q8H PRN #20 tab 03/15/20 [Rx] Past Medical History HEENT History: Reports: Other (See Below) Other HEENT History: states has "poor vision" because of MS, has upper and lower dental implants Cardiovascular History: Reports: None Respiratory History: Reports: None Gastrointestinal History: Reports: None Other Gastrointestinal History: elevated liver enzymes Genitourinary History: Reports: None Musculoskeletal History: Reports: Back Pain, Chronic Neurological History: Reports: Headaches, Chronic, Migraines, MS Psychiatric History: Reports: Anxiety, Depression, Suicide Attempt, Suicidal Ideation Endocrine/Metabolic History: Reports: Hypothyroidism Other Endocrine/Metabolic History: hypothyroidism Hematologic History: Reports: None Oncologic (Cancer) History: Reports: None Dermatologic History: Reports: None - Infectious Disease History Infectious Disease History: Reports: Chicken Pox - Past Surgical History Head Surgeries/Procedures: Reports: None GI Surgical History: Reports: Cholecystectomy, Hernia, Inguinal Social & Family History - Family History Family Medical History: Noncontributory - Tobacco Use Smoking Status *Q: Current Every Day Smoker Years of Tobacco use: 30 Packs/Tins Daily: 1 - Caffeine Use Caffeine Use: Reports: Coffee - Recreational Drug Use Recreational Drug Use: No ED ROS GENERAL - Review of Systems Review Of Systems: See Below Constitutional: Reports: No Symptoms HEENT: Reports: No Symptoms Respiratory: Reports: No Symptoms Cardiovascular: Reports: No Symptoms Endocrine: Reports: No Symptoms GI/Abdominal: Reports: No Symptoms, Abdominal Pain : Reports: No Symptoms Musculoskeletal: Reports: Muscle Pain (Pain in abdomen back comes and goes and radiates to different places) Skin: Reports: No Symptoms Neurological: Reports: No Symptoms Psychiatric: Reports: No Symptoms Hematologic/Lymphatic: Reports: No Symptoms Immunologic: Reports: No Symptoms ED EXAM, GI/ABD - Physical Exam Exam: See Below Exam Limited By: No Limitations General Appearance: Alert, WD/WN, No Apparent Distress Eyes: Bilateral: Normal Appearance Ears: Normal External Exam, Normal Canal, Hearing Grossly Normal Nose: Normal Inspection, Normal Mucosa Throat/Mouth: Normal Inspection, Normal Lips, Normal Oropharynx, Normal Voice Head: Atraumatic, Normocephalic Neck: Normal Inspection, Supple Respiratory/Chest: No Respiratory Distress, Lungs Clear Cardiovascular: Normal Peripheral Pulses, Regular Rate, Rhythm GI/Abdominal Exam: Normal Bowel Sounds (Male) Exam: Deferred Rectal (Males) Exam: Deferred Back Exam: Normal Inspection, Full Range of Motion Extremities: Normal Inspection, Normal Range of Motion Psychiatric: Normal Affect, Normal Mood Skin Exam: Warm, Intact, Normal Color Lymphatic: No Adenopathy Course - Vital Signs Text/Narrative:: Patient's ultrasound and laboratory results are within normal limits. Patient will be discharged home with a diagnostic as of muscular pain. Given muscle relaxers Last Recorded V/S: Last Vital Signs Temp 96.7 F L 03/15/20 14:58 Pulse 106 H 03/15/20 14:58 Resp 20 03/15/20 14:58 BP 114/96 H 03/15/20 14:58 Pulse Ox 100 03/15/20 14:58 - Orders/Labs/Meds Labs: Laboratory Tests 03/15/20 03/15/20 03/15/20 Range/Units 15:13 15:25 15:25 WBC 10.93 (4.0-11.0) K/uL RBC 4.94 (4.50-5.90) M/uL Hgb 11.1 L (13.0-17.0) g/dL Hct 37.4 L (38.0-50.0) % MCV 75.7 L (80.0-98.0) fL MCH 22.5 L (27.0-32.0) pg MCHC 29.7 L (31.0-37.0) g/dL RDW Std Deviation 54.0 (28.0-62.0) fl RDW Coeff of Paulo 20 H (11.0-15.0) % Plt Count 441 H (150-400) K/uL MPV 8.70 (7.40-12.00) fL Add Manual Diff YES Neutrophils % (Manual) 53 (48.0-80.0) % Lymphocytes % (Manual) 30 (16.0-40.0) % Monocytes % (Manual) 13 (0.0-15.0) % Eosinophils % (Manual) 4 (0.0-7.0) % Nucleated RBC % 0.0 /100WBC Absolute Seg Neuts 5.8 H (1.4-5.7) Lymphocytes # (Manual) 3.3 H (0.6-2.4) Monocytes # (Manual) 1.4 H (0.0-0.8) Eosinophils # (Manual) 0.4 (0.0-0.7) Nucleated RBCs # 0 K/uL Sodium 135 L (136-148) mmol/L Potassium 3.3 L (3.5-5.1) mmol/L Chloride 98 (98-107) mmol/L Carbon Dioxide 24.6 (21.0-32.0) mmol/L BUN 7 (7.0-18.0) mg/dL Creatinine 1.1 (0.8-1.3) mg/dL Est Cr Clr Drug Dosing 68.73 mL/min Estimated GFR (MDRD) > 60.0 ml/min Glucose 119 H (74-106) mg/dL Calcium 9.1 (8.5-10.1) mg/dL Total Bilirubin 0.2 (0.2-1.0) mg/dL AST 12 L (15-37) IU/L ALT 20 (14-63) IU/L Alkaline Phosphatase 123 H (46-116) U/L Total Protein 7.7 (6.4-8.2) g/dL Albumin 3.6 (3.4-5.0) g/dL Globulin 4.1 H (2.6-4.0) g/dL Albumin/Globulin Ratio 0.9 (0.9-1.6) Urine Color YELLOW Urine Appearance CLEAR Urine pH 6.0 (5.0-8.0) Ur Specific [place] 1.020 (1.001-1.035) Urine Protein NEGATIVE (NEGATIVE) mg/dL Urine Glucose (UA) NEGATIVE (NEGATIVE) mg/dL Urine Ketones NEGATIVE (NEGATIVE) mg/dL Urine Occult Blood NEGATIVE (NEGATIVE) Urine Nitrite NEGATIVE (NEGATIVE) Urine Bilirubin NEGATIVE (NEGATIVE) Urine Urobilinogen 0.2 (<2.0) EU/dL Ur Leukocyte Esterase NEGATIVE (NEGATIVE) Meds: Medications Discontinued Medications Generic Name Dose Route Start Last Admin Trade Name Freq PRN Reason Stop Dose Admin Sodium Chloride 1,000 mls @ 1,000 mls/hr 03/15/20 15:01 03/15/20 15:27 Normal Saline IV 03/15/20 16:00 1,000 mls/hr .Bolus ONE Administration Ketorolac Tromethamine 30 mg 03/15/20 15:01 03/15/20 15:27 Toradol IVPUSH 03/15/20 15:02 30 mg ONETIME ONE Administration Ondansetron HCl 4 mg 03/15/20 15:03 03/15/20 15:27 Zofran IVPUSH 03/15/20 15:04 4 mg ONETIME ONE Administration Departure - Departure Time of Disposition: 16:34 Disposition: Home, Self-Care 01 Condition: Good Clinical Impression: Muscular abdominal pain in right upper quadrant - Discharge Information Instructions: Pain Medicine Instructions, [id number] Referrals: Shahzad Alaniz MD [Primary Care Provider] - Forms: ED Department Discharge Sepsis Event Note - Evaluation Sepsis Screening Result: No Definite Risk - Focused Exam Vital Signs: Vital Signs Temp Pulse Resp BP Pulse Ox 03/15/20 14:58 96.7 F L 106 H 20 114/96 H 100 Date Exam was Performed: 03/15/20 Time Exam was Performed: 16:30
[2020-03-15 16:13] LABS: BLOOD UREA NITROGEN,BUN 7 mg/dL (7.0-18.0); CARBON DIOXIDE,CO2 24.6 mmol/L (21.0-32.0); CHLORIDE,CL 98 mmol/L (98-107); GLUCOSE RANDOM 119 mg/dL (74-106); POTASSIUM,K 3.3 mmol/L (3.5-5.1); SODIUM,NA 135 mmol/L (136-148)
--- NOTE | 2020-03-15 16:28 | CR ---
Chest: Frontal view of the chest was obtained. Comparison: No prior chest imaging is available. Heart size and mediastinum are normal. Lungs are clear with no acute parenchymal change. Bony structures are grossly intact. Impression: 1. Nothing acute is seen on frontal chest x-ray. Diagnostic code #1 This report was dictated in MDT
--- NOTE | 2020-03-15 16:28 | US ---
Abdominal ultrasound: Multiple real-time images were obtained of the abdomen. Liver shows no focal parenchymal abnormality. Prior cholecystectomy is noted. Common bile duct measures 7 mm which is felt to be within normal limits for postcholecystectomy patient. Spleen size is normal. Pancreas appears within normal limits as seen. Kidneys show no hydronephrosis or mass. Right kidney length is 10.9 cm and left kidney length is 11.4 cm. Appendix not seen within the right lower quadrant. Fluid-filled bowel is noted in this area obscuring the appendix. Impression: 1. Prior cholecystectomy with no biliary duct dilatation. 2. Obscured appendix. 3. Other portions of the abdominal ultrasound study are unremarkable. Diagnostic code #2 This report was dictated in MDT
[2020-03-15] MEDS ORDERED: Cyclobenzaprine 10 MG Tab PO ONE (16:31)
[2020-03-15 16:57] VITALS: BP 114/77; PULSE 83
== END 2020-03-15 16:49 | disposition home or self-care (01) ==
LOC: MW.ED 14:47
DX: R10.11 Right upper quadrant pain (principal); E03.9 Hypothyroidism, unspecified; F17.210 Nicotine dependence, cigarettes, uncomplicated; Z88.1 Allergy status to other antibiotic agents; Z79.899 Other long term (current) drug therapy
CPT/HCPCS: 36415; 71045; 76700; 80053; 81003; 85025; 96374; 96375; 99284; A9270; J1885; J2405; J7030; 99283

== ENCOUNTER 2021-07-08 18:01 | Emergency (ER) | payer MEDICAID ==
[2021-07-08 20:24] VITALS: BP 105/65; PULSE 87
--- NOTE | 2021-07-08 21:29 | EDM.PDOC ---
ED HPI GENERAL MEDICAL PROBLEM - General Chief Complaint: General Stated Complaint: WHITE BLOOD CELL COUNT HIGH, MIGRAINE Time Seen by Provider: 07/08/21 20:11 - History of Present Illness INITIAL COMMENTS - FREE TEXT/NARRATIVE: HISTORY AND PHYSICAL: History of present illness: This a 46-year-old gentleman with history significant for MS who presents ER today after being called by his preop nurse secondary to an elevated WBC count and told to come the ER for IV antibiotics. Patient reports that he is scheduled to have dental extraction on July 20 and went today for his preop clearance with the anesthesiologist. He reports that he had his blood test drawn and was called this evening to come to the ED for reevaluation of an elevated WBC count. Patient denies any other new symptomatology. Patient has recent fevers, shakes, chills, nausea, vomiting, diarrhea, dysuria, frequency, urgency. Patient has any chest pain or shortness of breath. Patient has any cough cold or rhinorrhea. Patient has any Covid symptoms. Patient reports that he has chronic pain in his teeth and is currently on antibiotics for tooth infections pending his surgical procedure. Review of systems: As per history of present illness and below otherwise all systems reviewed and negative. Past medical history: As per history of present illness and as reviewed below otherwise noncontributory. Surgical history: As per history of present illness and as reviewed below otherwise noncontributory. Social history: No reported history of drug abuse. Family history: As per history of present illness and as reviewed below otherwise noncontributory. Physical exam: This patient was seen and evaluated during the 2019 SARS-CoV-2 novel coronavirus pandemic period. Community viral transmission is ongoing at time of this encounter and the emergency department is operating under pandemic response procedures. Constitutional: Patient is oriented to person, place, and time. Appears well- developed and well-nourished. No distress. HEENT: Moist mucous membranes Head: Normocephalic and atraumatic Eyes: Right eye exhibits no discharge. Left eye exhibits no discharge. No scleral icterus Neck: Normal range of motion. No tracheal deviation present. Cardiovascular: Normal rate and regular rhythm. Pulmonary: Effort normal, no respiratory distress. No wheezing rales or rhonchi Abdominal: No distention Musculoskeletal: Normal range of motion Neurologic: Alert and oriented to person, place and time. Skin: [place], warm and dry. Psychiatric: Normal mood and affect. Behavior is normal. Judgment and thought content normal. Nursing note and vital signs have been reviewed Diagnostics: [] Therapeutics: [] Assessment and plan: This is a 46-year-old gentleman who presents ER today secondary to being called by a nurse after being evaluated for preop clearance by anesthesiology and was told to come to the ED secondary to an elevated WBC count the might require IV antibiotics. At this time, the patient is currently on oral antibiotics with a white count of 12,000. Patient does not have any fever and is not exhibiting any signs or symptoms concerning for other infections. At this time, it is unclear whether or not this was a misunderstanding and there is no way for me to be able to obtain a hold of his nurse at this time. I have recommended that the patient call the nurse tomorrow to get clarification as to her concerns and to have her call the ED in the morning regarding any concerns that she might have. I do not believe that the patient needs any IV antibiotics at this time and that he should continue the current course of action with his oral antibiotics and current pain regimen. Reassessment at the time of disposition demonstrates that the patient is in no acute distress. The patient has remained stable throughout the entire ED visit and is without objective evidence for acute process requiring urgent intervention or hospitalization. The patient is stable for discharge, counseling is provided as documented above, discussed symptomatic treatment and specific conditions for return. I have spoken with the patient/caregiver and discussed todays findings, in addition to providing specific details for the plan of care. Questions are answered and there is agreement with the plan. Definitive disposition and diagnosis as appropriate pending reevaluation and review of above. 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 Tooth/Teeth Pain Score (Numeric/FACES): 8 - Related Data Allergies Allergy/AdvReac Type Severity Reaction Status Date / Time cephalexin [From Keflex] Allergy Nausea and Verified 03/15/20 14:56 Vomiting ibuprofen [From Motrin] Allergy Nausea and Verified 07/08/21 20:15 Vomiting Home Meds: Home Meds Levothyroxine [Levothroid] 200 mcg PO DAILY 04/07/19 [History] Clindamycin HCl 300 mg PO TID 07/08/21 [History] Escitalopram [Lexapro] 10 mg PO DAILY 07/08/21 [History] QUEtiapine Fumarate [Quetiapine Fumarate] 25 mg PO BEDTIME 07/08/21 [History] Past Medical History HEENT History: Reports: Other (See Below) Other HEENT History: states has "poor vision" because of MS, has upper and lower dental implants, wears hearing aids Cardiovascular History: Reports: None Respiratory History: Reports: None Gastrointestinal History: Reports: None Other Gastrointestinal History: elevated liver enzymes Genitourinary History: Reports: None Musculoskeletal History: Reports: Back Pain, Chronic Neurological History: Reports: Headaches, Chronic, Migraines, MS Psychiatric History: Reports: Anxiety, Depression, Suicide Attempt, Suicidal Ideation Endocrine/Metabolic History: Reports: Hypothyroidism Other Endocrine/Metabolic History: hypothyroidism Hematologic History: Reports: None Oncologic (Cancer) History: Reports: None Dermatologic History: Reports: None - Infectious Disease History Infectious Disease History: Reports: Chicken Pox - Past Surgical History Head Surgeries/Procedures: Reports: None GI Surgical History: Reports: Cholecystectomy, Hernia, Inguinal Male Surgical History: Reports: None Social & Family History - Family History Family Medical History: No Pertinent Family History - Tobacco Use Tobacco Use Status *Q: Current Every Day Tobacco User Years of Tobacco use: 30 Packs/Tins Daily: 1 - Caffeine Use Caffeine Use: Reports: None - Recreational Drug Use Recreational Drug Use: No ED ROS GENERAL - Review of Systems Review Of Systems: See Below ED EXAM, GENERAL - Physical Exam Exam: See Below Course - Vital Signs Last Recorded V/S: Last Vital Signs Temp 96.9 F 07/08/21 20:22 Pulse 87 07/08/21 20:22 Resp 18 07/08/21 20:22 BP 105/65 07/08/21 20:22 Pulse Ox 97 07/08/21 20:22 Departure - Departure Time of Disposition: 21:28 Disposition: Home, Self-Care 01 Condition: Good Clinical Impression: Leukocytosis Qualifiers: Leukocytosis type: unspecified Qualified Code(s): D72.829 - Elevated white blood cell count, unspecified - Discharge Information Instructions: Leukocytosis Referrals: Joseph Chino MD [Primary Care Provider] - Additional Instructions: You were seen and evaluated in the ER today secondary to concern about an elevated white blood cell count. The labs were reviewed from earlier today are unremarkable and do not indicate the need for any IV antibiotics at this time. Please call the nurse in the morning so that she can contact us if she has any further concerns regarding your lab tests. Please return the ER if you develop any new or concerning symptoms. The following information is given to patients seen in the emergency department who are being discharged to home. This information is to outline your options for follow-up care. We provide all patients seen in our emergency department with a follow-up referral. The need for follow-up, as well as the timing and circumstances, are variable depending upon the specifics of your emergency department visit. If you don't have a primary care physician on staff, we will provide you with a referral. We always advise you to contact your personal physician following an emergency department visit to inform them of the circumstance of the visit and for follow-up with them and/or the need for any referrals to a consulting specialist. The emergency department will also refer you to a specialist when appropriate. This referral assures that you have the opportunity for follow-up care with a specialist. All of these measure are taken in an effort to provide you with optimal care, which includes your follow-up. Under all circumstances we always encourage you to contact your private physician who remains a resource for coordinating your care. When calling for follow-up care, please make the office aware that this follow-up is from your recent emergency room visit. If for any reason you are refused follow-up, please contact the [facility] Emergency Department at and asked to speak to the emergency department charge nurse. [facility] [address] [place] [address] [place] [address] Sepsis Event Note (ED) - Focused Exam Vital Signs: Vital Signs Temp Pulse Resp BP Pulse Ox 07/08/21 20:22 96.9 F 87 18 105/65 97
== END 2021-07-08 21:54 | disposition home or self-care (01) ==
LOC: MW.ED 18:01
DX: D72.829 Elevated white blood cell count, unspecified (principal); E03.9 Hypothyroidism, unspecified; Z72.0 Tobacco use; Z79.899 Other long term (current) drug therapy; Z88.1 Allergy status to other antibiotic agents; Z88.8 Allergy status to other drugs, medicaments and biological substances
CPT/HCPCS: 99283

== ENCOUNTER 2021-11-07 14:52 | Emergency (ER) | payer MEDICAID ==
--- NOTE | 2021-11-07 18:29 | CR ---
INDICATION: Shortness of breath. TECHNIQUE: PA and lateral views. COMPARISON: 04/23/2020 FINDINGS : Normal heart size. Normal pulmonary vasculature. No appreciable airspace opacities to suggest pneumonia. No pleural fluid or pneumothorax. IMPRESSION: No radiographic evidence of acute thoracic disease. Dictated by Warren Strange MD @ 11/07/2021 6:27:44 PM Dictated by: Warren Strange MD @ 11/07/2021 18:27:54 (Electronically Signed)
[2021-11-07 18:37] LABS: BLOOD UREA NITROGEN,BUN 11 mg/dL (7.0-18.0); CARBON DIOXIDE,CO2 22.4 mmol/L (21.0-32.0); CHLORIDE,CL 100 mmol/L (98-107); GLUCOSE RANDOM 94 mg/dL (74-106); POTASSIUM,K 3.7 mmol/L (3.5-5.1); SODIUM,NA 135 mmol/L (136-148)
--- NOTE | 2021-11-07 18:57 | EDM.PDOC ---
ED HPI GENERAL MEDICAL PROBLEM - General Chief Complaint: Respiratory Problem Stated Complaint: ANXIETY Time Seen by Provider: 11/07/21 16:39 Source of Information: Reports: Patient History Limitations: Reports: No Limitations - History of Present Illness INITIAL COMMENTS - FREE TEXT/NARRATIVE: HISTORY AND PHYSICAL: History of present illness: Patient is a 46-year-old male presents emergency room today with concern of shortness of breath that has been ongoing for the past 2 months. Patient states that he is here today in the emergency room because he is anxious and feels this is worsening his shortness of breath. Patient states he has an extensive history of anxiety but has not followed up with a primary care provider although realizes he needs to do this. Patient states that he was on anxiety medication in the past but has not been on it for quite some time and has not seen his primary care provider to get back on an anxiety medication. Patient states that he is here today because his dad is in poor health so he feels extra anxious which has exacerbated his shortness of breath. Patient denies any associated chest pain. Patient denies fever, chills, chest pain, or cough. Denies headache, neck stiff ness, change in vision, syncope, or near syncope. Denies nausea, vomiting, abdominal pain, diarrhea, constipation, or dysuria. Has not noted any blood in urine or stool. Patient has been eating and drinking appropriately. Review of systems: As per history of present illness and below otherwise all systems reviewed and negative. Past medical history: As per history of present illness and as reviewed below otherwise noncontributory. Surgical history: As per history of present illness and as reviewed below otherwise noncontributory. Social history: See social history for further information Family history: As per history of present illness and as reviewed below otherwise noncontributory. Physical exam: General: Patient is alert, oriented, and in no acute distress. Patient sitting comfortably on exam table. Vitals stable and reviewed by me. HEENT: Atraumatic, normocephalic, pupils equal and reactive bilaterally, negative for conjunctival pallor or scleral icterus, mucous membranes moist, throat clear, neck supple, nontender, trachea midline. No drooling or trismus noted. No meningeal signs. No hot potato voice noted. Lungs: Clear to auscultation, breath sounds equal bilaterally, chest nontender. Heart: S1S2, regular rate and rhythm without overt murmur Abdomen: Soft, nondistended, nontender. Negative for masses or hepatosplen omegaly. Negative for costovertebral tenderness. Pelvis: Stable nontender. Genitourinary: Deferred. Rectal: Deferred. Skin: Intact, warm, dry. No lesions or rashes noted. Extremities: Atraumatic, negative for cords or calf pain. Neurovascular unremarkable. Neuro: Awake, alert, oriented. Cranial nerves II through XII unremarkable. Cerebellum unremarkable. Motor and sensory unremarkable throughout. Exam nonfocal. Medical Decision Making: Patient is a 46-year-old male who presents emergency room today with concern of worsening shortness of breath x2 months with associated anxiety. Upon arrival to the ED, patient is vitally stable and well-appearing on exam and does appear mildly anxious. Will obtain cardiac evaluation and reassess patient. See Dr. Munoz's dictation for specific EKG interpretation. Otherwise, NSR without STEMI. CBC does show mild anemia with red blood cells at 4.02, hemoglobin of 11.9, and hematocrit of 36.4. Otherwise mild derangements of CBC are unremarkable. CMP does show an elevation of ALT and alk phos at 101 38 respectively, otherwise mild derangements of CMP are unremarkable. Troponin negative. Chest x-ray shows no evidence of acute thoracic disease. Upon reevaluation of patient, remains vitally stable and comfortable throughout stay in ED. Strict return precautions thoroughly discussed with patient. Discussed importance for follow-up with a primary care provider. Voices understanding and is agreeable to plan of care. Denies any further questions or concerns at this time. Diagnostics: EKG, CBC, CMP, chest x-ray, troponin Therapeutics: Ativan p.o. Prescription: None Impression: Dyspnea Anxiety Plan: 1. Follow-up with your primary care provider as discussed. Return to the ED as needed and as discussed. Definitive disposition and diagnosis as appropriate pending reevaluation and review of above. Headache Pain Score (Numeric/FACES): 8 - Related Data Allergies Allergy/AdvReac Type Severity Reaction Status Date / Time cephalexin [From Keflex] Allergy Nausea and Verified 03/15/20 14:56 Vomiting ibuprofen [From Motrin] Allergy Nausea and Verified 07/08/21 20:15 Vomiting Home Meds: Home Meds Levothyroxine [Levothroid] 200 mcg PO DAILY 04/07/19 [History] Clindamycin HCl 300 mg PO TID 07/08/21 [History] Escitalopram [Lexapro] 10 mg PO DAILY 07/08/21 [History] Past Medical History HEENT History: Reports: Other (See Below) Other HEENT History: states has "poor vision" because of MS, wears hearing aids; removal of dental implants 2020 Cardiovascular History: Reports: None Respiratory History: Reports: None Gastrointestinal History: Reports: Other (See Below) Other Gastrointestinal History: elevated liver enzymes Genitourinary History: Reports: None Musculoskeletal History: Reports: Back Pain, Chronic Neurological History: Reports: Headaches, Chronic, Migraines, MS Psychiatric History: Reports: Anxiety, Depression, Suicide Attempt, Suicidal Ideation Endocrine/Metabolic History: Reports: Hypothyroidism Other Endocrine/Metabolic History: hypothyroidism Hematologic History: Reports: None Oncologic (Cancer) History: Reports: None Dermatologic History: Reports: None - Infectious Disease History Infectious Disease History: Reports: Chicken Pox - Past Surgical History Head Surgeries/Procedures: Reports: None GI Surgical History: Reports: Cholecystectomy, Hernia, Inguinal Male Surgical History: Reports: None Social & Family History - Family History Family Medical History: No Pertinent Family History Respiratory: Reports: Asthma Endocrine/Metabolic: Reports: Diabetes, Type I - Caffeine Use Caffeine Use: Reports: None - Recreational Drug Use Recreational Drug Use: Yes Recreational Drug Type: Reports: Marijuana/Hashish ED ROS GENERAL - Review of Systems Review Of Systems: Comprehensive ROS is negative, except as noted in HPI. ED EXAM, GENERAL - Physical Exam Exam: See Below (See dictation) Course - Vital Signs Last Recorded V/S: Last Vital Signs Temp 98.1 F 11/07/21 18:41 Pulse 81 11/07/21 19:08 Resp 16 11/07/21 19:08 BP 128/72 11/07/21 19:08 Pulse Ox 98 11/07/21 19:08 - Orders/Labs/Meds Labs: Laboratory Tests 11/07/21 11/07/21 Range/Units 17:47 17:47 WBC 8.26 (4.0-11.0) K/uL RBC 4.02 L (4.50-5.90) M/uL Hgb 11.9 L (13.0-17.0) g/dL Hct 36.4 L (38.0-50.0) % MCV 90.5 (80.0-98.0) fL MCH 29.6 (27.0-32.0) pg MCHC 32.7 (31.0-37.0) g/dL RDW Std Deviation 63.2 H (28.0-62.0) fl RDW Coeff of Paulo 19 H (11.0-15.0) % Plt Count 281 (150-400) K/uL MPV 9.00 (7.40-12.00) fL Neut % (Auto) 67.9 (48.0-80.0) % Lymph % (Auto) 19.1 (16.0-40.0) % Garfield % (Auto) 10.3 (0.0-15.0) % Eos % (Auto) 1.9 (0.0-7.0) % Baso % (Auto) 0.8 (0.0-1.5) % Neut # (Auto) 5.6 (1.4-5.7) K/uL Lymph # (Auto) 1.6 (0.6-2.4) K/uL Garfield # (Auto) 0.9 H (0.0-0.8) K/uL Eos # (Auto) 0.2 (0.0-0.7) K/uL Baso # (Auto) 0.1 (0.0-0.1) K/uL Nucleated RBC % 0.0 /100WBC Nucleated RBCs # 0 K/uL Sodium 135 L (136-148) mmol/L Potassium 3.7 (3.5-5.1) mmol/L Chloride 100 (98-107) mmol/L Carbon Dioxide 22.4 (21.0-32.0) mmol/L BUN 11 (7.0-18.0) mg/dL Creatinine 0.8 (0.8-1.3) mg/dL Est Cr Clr Drug Dosing 82.29 mL/min Estimated GFR (MDRD) > 60.0 ml/min Glucose 94 (74-106) mg/dL Calcium 9.2 (8.5-10.1) mg/dL Total Bilirubin 0.2 (0.2-1.0) mg/dL AST 22 (15-37) IU/L ALT 100 H (14-63) IU/L Alkaline Phosphatase 138 H (46-116) U/L Troponin I < 0.050 (0.000-0.056) ng/mL Total Protein 7.0 (6.4-8.2) g/dL Albumin 3.4 (3.4-5.0) g/dL Globulin 3.6 (2.6-4.0) g/dL Albumin/Globulin Ratio 0.9 (0.9-1.6) Meds: Medications Discontinued Medications Generic Name Dose Route Start Last Admin Trade Name Mendezq PRN Reason Stop Dose Admin Lorazepam 1 mg 11/07/21 19:02 11/07/21 19:05 Lorazepam 1 Mg Tab PO 11/07/21 19:03 1 mg ONETIME ONE Administration Departure - Departure Time of Disposition: 18:56 Disposition: Home, Self-Care 01 Clinical Impression: Dyspnea, Anxiety - Discharge Information Instructions: Shortness of Breath, Adult, [id number] Referrals: PCP,None [Primary Care Provider] - Forms: ED Department Discharge, Interfacility Transfer EMTALA Additional Instructions: The following information is given to patients seen in the emergency department who are being discharged to home. This information is to outline your options for follow-up care. We provide all patients seen in our emergency department with a follow-up referral. The need for follow-up, as well as the timing and circumstances, are variable depending upon the specifics of your emergency department visit. If you don't have a primary care physician on staff, we will provide you with a referral. We always advise you to contact your personal physician following an emergency department visit to inform them of the circumstance of the visit and for follow-up with them and/or the need for any referrals to a consulting specialist. The emergency department will also refer you to a specialist when appropriate. This referral assures that you have the opportunity for follow-up care with a specialist. All of these measure are taken in an effort to provide you with optimal care, which includes your follow-up. Under all circumstances we always encourage you to contact your private physician who remains a resource for coordinating your care. When calling for follow-up care, please make the office aware that this follow-up is from your recent emergency room visit. If for any reason you are refused follow-up, please contact the [facility] Department at and asked to speak to the emergency department charge nurse. [facility] [address] [place] [address] [facility] [address] [place] [address] 1. Follow-up with your primary care provider as discussed. Return to the ED as needed and as discussed. Sepsis Event Note (ED) - Evaluation Sepsis Screening Result: No Definite Risk - Focused Exam Vital Signs: Vital Signs Temp Pulse Resp BP Pulse Ox 11/07/21 19:08 81 16 128/72 98 11/07/21 18:41 98.1 F 87 16 95/73 99 11/07/21 17:42 81 125/88 100 11/07/21 16:18 100 102/76 97 11/07/21 15:22 97.8 F 101 H 18 102/64 100
[2021-11-07] MEDS ORDERED: LORazepam 1 MG Tab PO ONE (19:02)
[2021-11-07 19:26] VITALS: BP 128/72; PULSE 81
--- NOTE | 2021-11-08 08:08 | PCM.EKG ---
#1 Interpretation EKG Date: 11/07/21 Time: 14:55 Rhythm: NSR Rate (Beats/Min): 109 [place]: Normal P-Wave: Present QRS: Other (LAFB) ST-T: Normal QT: Normal Comparison: NA - No Prior EKG EKG Interpretation Comments: Sinus Tachycardia with LAFB
== END 2021-11-07 19:08 | disposition home or self-care (01) ==
LOC: MW.ED 14:52
DX: R06.02 Shortness of breath (principal); F41.9 Anxiety disorder, unspecified; E03.9 Hypothyroidism, unspecified; Z88.1 Allergy status to other antibiotic agents; Z88.8 Allergy status to other drugs, medicaments and biological substances; Z79.899 Other long term (current) drug therapy
CPT/HCPCS: 36415; 71046; 80053; 84484; 85025; 93005; 99285; A9270

== ENCOUNTER 2024-07-25 21:06 | Inpatient (IN) | payer MEDICAID ==
[2024-07-25] MEDS: LORazepam 0.5 MG Tab PO ONE (22:10)
[2024-07-25] MEDS: Sodium Chloride 0.9% 1,000 ML IV ONE ×2 (22:10→23:47)
[2024-07-25] MEDS: Albuterol/Ipratropium 3.0-0.5 MG/3 ML Neb Soln NEB ONE (22:10)
[2024-07-25] MEDS: Sodium Chloride 0.9% 10 ML Syringe FLUSH PRN (22:11)
[2024-07-25 22:12] LABS: BASOPHILS ABSOLUTE AUTO 0.05 K/uL (0.00-0.20); BASOPHILS PERCENT AUTO 0.7 % (0.0-1.0); EOSINOPHILS ABSOLUTE AUTO 0.03 K/uL (0.00-0.45); EOSINOPHILS PERCENT AUTO 0.4 % (0.0-6.0); HEMATOCRIT 24.6 % (42.0-52.0); HEMOGLOBIN 8.1 g/dL (14.0-18.0); IMMATURE GRAN ABSOLUTE AUTO 0.03 K/uL (0.00-0.05); IMMATURE GRAN PERCENT AUTO 0.4 % (0.0-0.4); LYMPHOCYTES PERCENT AUTO 10.1 % (24.0-44.0); MEAN CORPUSCULAR HEMOGLOBIN 33.1 pg (28.0-32.0); MEAN CORPUSCULAR HGB CONC 32.9 g/dL (32.0-36.0); MEAN CORPUSCULAR VOLUME 100.4 fL (83.0-99.0); MEAN PLATELET VOLUME 10.5 fL (9.4-12.4); MONOCYTES ABSOLUTE AUTO 1.01 K/uL (0.00-0.80); MONOCYTES PERCENT AUTO 14.6 % (0.0-8.0); NEUTROPHILS ABSOLUTE AUTO 5.09 K/uL (1.80-7.70); NEUTROPHILS PERCENT AUTO 73.8 % (41.0-71.0); PLATELET COUNT,PLT 99 K/uL (150-400); RED BLOOD CELL COUNT 2.45 M/uL (4.52-5.90); WHITE BLOOD CELL COUNT,WBC 6.91 K/uL (3.9-11.3)
[2024-07-25 22:13] LABS: BICARBONATE,VENOUS 21 mEQ/mL (22-28); PCO2 VENOUS 34 mmHG (41-51); PH,VENOUS 7.41 (7.31-7.41)
[2024-07-25 22:14] LABS: PO2 VENOUS < 30 mmHG (35-45)
[2024-07-25 22:14] LABS: CORONAVIRUS COVID-19 NAA NEGATIVE (NEGATIVE); INFLUENZA A NAA NEGATIVE (NEGATIVE); INFLUENZA B NAA NEGATIVE (NEGATIVE); RESPIRATORY SYNCYTIAL VIR NAA NEGATIVE (NEGATIVE)
[2024-07-25 22:49] LABS: A/G RATIO 0.8 (0.9-1.6); ALBUMIN 2.6 g/dL (3.4-5.0); BILIRUBIN TOTAL 0.9 mg/dL (0.2-1.0); CALCIUM 7.5 mg/dL (8.5-10.1); CREATININE 1.5 mg/dL (0.8-1.3); EST CRCL DRUG DOSING (CG) 50.43 mL/min; MAGNESIUM 1.6 mg/dL (1.8-2.4); POTASSIUM,K 3.8 mmol/L (3.5-5.1); PROTEIN TOTAL,TP 5.9 g/dL (6.4-8.2)
[2024-07-26 00:22] LABS: PERCENT FE SATURATION 10.24 % (20-55)
[2024-07-26] MEDS: Pantoprazole 80 MG in Sodium Chloride 0.9% 10 ML IVPUSH ONE (00:49)
[2024-07-26 00:57] LABS: INR 1.29 (0.86-1.11)
[2024-07-26 01:13] LABS: HEMATOCRIT 24.5 % (42.0-52.0)
[2024-07-26] MEDS: Iopamidol 755 MG/ML 500 ML Multipack Bottle IVPUSH ONE (01:17)
[2024-07-26] MEDS: metroNIDAZOLE/Normal Saline 500 MG in Premix Bag 1 BAG IV ONE (02:21)
[2024-07-26] MEDS: Ciprofloxacin in D5W 400 MG in Premix Bag 1 BAG IV SCH ×2 (02:21→13:52)
[2024-07-26] MEDS: LORazepam 0.5 MG Tab PO ONE ×2 (04:00→20:57)
[2024-07-26] MEDS: Sodium Chloride 0.9% 1,000 ML IV SCH (04:27)
[2024-07-26] MEDS: Levothyroxine 100 MCG Tab PO SCH (11:14)
[2024-07-26] MEDS: metroNIDAZOLE/Normal Saline 500 MG in Premix Bag 1 BAG IV SCH (11:14)
[2024-07-26] MEDS ORDERED: TOPIRAMATE 100 MG PO SCH (11:15)
[2024-07-26] MEDS: SUMAtriptan 6 MG/0.5 ML SDV SUBCUT ONE ×2 (11:28→20:57)
[2024-07-26 11:31] LABS: BASOPHILS ABSOLUTE AUTO 0.02 K/uL (0.00-0.20); BASOPHILS PERCENT AUTO 0.5 % (0.0-1.0); EOSINOPHILS ABSOLUTE AUTO 0.01 K/uL (0.00-0.45); EOSINOPHILS PERCENT AUTO 0.2 % (0.0-6.0); HEMATOCRIT 21.8 % (42.0-52.0); HEMOGLOBIN 7.3 g/dL (14.0-18.0); IMMATURE GRAN ABSOLUTE AUTO 0.01 K/uL (0.00-0.05); IMMATURE GRAN PERCENT AUTO 0.2 % (0.0-0.4); LYMPHOCYTES ABSOLUTE AUTO 0.75 K/uL (1.00-4.80); LYMPHOCYTES PERCENT AUTO 17.8 % (24.0-44.0); MEAN CORPUSCULAR HEMOGLOBIN 33.3 pg (28.0-32.0); MEAN CORPUSCULAR HGB CONC 33.5 g/dL (32.0-36.0); MEAN CORPUSCULAR VOLUME 99.5 fL (83.0-99.0); MEAN PLATELET VOLUME 10.6 fL (9.4-12.4); MONOCYTES ABSOLUTE AUTO 0.74 K/uL (0.00-0.80); MONOCYTES PERCENT AUTO 17.6 % (0.0-8.0); NEUTROPHILS ABSOLUTE AUTO 2.68 K/uL (1.80-7.70); NEUTROPHILS PERCENT AUTO 63.7 % (41.0-71.0); RED BLOOD CELL COUNT 2.19 M/uL (4.52-5.90); WHITE BLOOD CELL COUNT,WBC 4.21 K/uL (3.9-11.3)
[2024-07-26 11:33] LABS: CALCIUM 6.6 mg/dL (8.5-10.1); EST CRCL DRUG DOSING (CG) 74.01 mL/min; POTASSIUM,K 3.3 mmol/L (3.5-5.1)
[2024-07-26 11:37] LABS: CARBON DIOXIDE,CO2 21.8 mmol/L (21.0-32.0)
[2024-07-26] MEDS: LORazepam 2 MG/ML SDV IVPUSH ONE (11:38)
[2024-07-26 11:40] LABS: PLATELET COUNT,PLT 102 K/uL (150-400)
[2024-07-26 19:15] LABS: BASOPHILS ABSOLUTE AUTO 0.02 K/uL (0.00-0.20); BASOPHILS PERCENT AUTO 0.7 % (0.0-1.0); EOSINOPHILS ABSOLUTE AUTO 0.07 K/uL (0.00-0.45); EOSINOPHILS PERCENT AUTO 2.4 % (0.0-6.0); HEMATOCRIT 21.1 % (42.0-52.0); HEMOGLOBIN 7.1 g/dL (14.0-18.0); IMMATURE GRAN ABSOLUTE AUTO 0.01 K/uL (0.00-0.05); IMMATURE GRAN PERCENT AUTO 0.3 % (0.0-0.4); LYMPHOCYTES ABSOLUTE AUTO 0.75 K/uL (1.00-4.80); LYMPHOCYTES PERCENT AUTO 25.3 % (24.0-44.0); MEAN CORPUSCULAR HEMOGLOBIN 33.3 pg (28.0-32.0); MEAN CORPUSCULAR HGB CONC 33.6 g/dL (32.0-36.0); MEAN CORPUSCULAR VOLUME 99.1 fL (83.0-99.0); MONOCYTES ABSOLUTE AUTO 0.44 K/uL (0.00-0.80); MONOCYTES PERCENT AUTO 14.9 % (0.0-8.0); NEUTROPHILS ABSOLUTE AUTO 1.67 K/uL (1.80-7.70); NEUTROPHILS PERCENT AUTO 56.4 % (41.0-71.0); PLATELET COUNT,PLT 59 K/uL (150-400); RED BLOOD CELL COUNT 2.13 M/uL (4.52-5.90); WHITE BLOOD CELL COUNT,WBC 2.96 K/uL (3.9-11.3)
[2024-07-26] MEDS ORDERED: LORazepam 0.5 MG Tab PO ONE (20:29)
[2024-07-26] MEDS ORDERED: SUMAtriptan 6 MG/0.5 ML SDV SUBCUT ONE (20:29)
[2024-07-26] MEDS: Escitalopram 10 MG Tab PO SCH (20:56)
[2024-07-26] MEDS: Cyclobenzaprine 10 MG Tab PO PRN (20:56)
[2024-07-27] MEDS: Zolpidem 5 MG Tab PO PRN (02:15)
[2024-07-27 06:49] LABS: BASOPHILS ABSOLUTE AUTO 0.04 K/uL (0.00-0.20); BASOPHILS PERCENT AUTO 1.3 % (0.0-1.0); EOSINOPHILS ABSOLUTE AUTO 0.08 K/uL (0.00-0.45); EOSINOPHILS PERCENT AUTO 2.7 % (0.0-6.0); HEMATOCRIT 23.3 % (42.0-52.0); HEMOGLOBIN 7.8 g/dL (14.0-18.0); IMMATURE GRAN ABSOLUTE AUTO 0.01 K/uL (0.00-0.05); IMMATURE GRAN PERCENT AUTO 0.3 % (0.0-0.4); LYMPHOCYTES ABSOLUTE AUTO 0.79 K/uL (1.00-4.80); LYMPHOCYTES PERCENT AUTO 26.6 % (24.0-44.0); MEAN CORPUSCULAR HEMOGLOBIN 33.2 pg (28.0-32.0); MEAN CORPUSCULAR HGB CONC 33.5 g/dL (32.0-36.0); MEAN CORPUSCULAR VOLUME 99.1 fL (83.0-99.0); MEAN PLATELET VOLUME 10.1 fL (9.4-12.4); MONOCYTES ABSOLUTE AUTO 0.48 K/uL (0.00-0.80); MONOCYTES PERCENT AUTO 16.2 % (0.0-8.0); NEUTROPHILS ABSOLUTE AUTO 1.57 K/uL (1.80-7.70); NEUTROPHILS PERCENT AUTO 52.9 % (41.0-71.0); RED BLOOD CELL COUNT 2.35 M/uL (4.52-5.90); WHITE BLOOD CELL COUNT,WBC 2.97 K/uL (3.9-11.3)
[2024-07-27 07:03] LABS: CALCIUM 6.7 mg/dL (8.5-10.1); CARBON DIOXIDE,CO2 23.7 mmol/L (21.0-32.0); CREATININE 0.8 mg/dL (0.8-1.3); EST CRCL DRUG DOSING (CG) 92.52 mL/min; POTASSIUM,K 3.2 mmol/L (3.5-5.1)
[2024-07-27 07:08] LABS: PLATELET COUNT,PLT 98 K/uL (150-400)
[2024-07-27] MEDS: Vancomycin 125 MG Cap PO SCH (11:45)
[2024-07-27] MEDS: Magnesium Sulfate/Water Premix 2 GM in Premix Bag 1 BAG IV ONE (11:45)
[2024-07-27] MEDS: Pantoprazole 40 MG in Sodium Chloride 0.9% 10 ML IVPUSH SCH (11:45)
[2024-07-27] MEDS: SUMAtriptan 50 MG Tab PO PRN (11:46)
[2024-07-27] MEDS: Potassium Chloride 20 MEQ Tab.ER PO ONE (11:46)
[2024-07-27] MEDS ORDERED: Pantoprazole 40 MG in Sodium Chloride 0.9% 10 ML IVPUSH SCH (12:00)
[2024-07-27] MEDS: Acetaminophen 325 MG Tab PO PRN (18:50)
[2024-07-27] MEDS: QUEtiapine 25 MG Tab PO SCH (19:31)
[2024-07-28] MEDS: traZODone 50 MG Tab PO PRN (01:28)
[2024-07-28 06:22] LABS: BASOPHILS ABSOLUTE AUTO 0.03 K/uL (0.00-0.20); BASOPHILS PERCENT AUTO 1.4 % (0.0-1.0); EOSINOPHILS ABSOLUTE AUTO 0.09 K/uL (0.00-0.45); EOSINOPHILS PERCENT AUTO 4.1 % (0.0-6.0); HEMOGLOBIN 7.7 g/dL (14.0-18.0); IMMATURE GRAN ABSOLUTE AUTO 0.01 K/uL (0.00-0.05); IMMATURE GRAN PERCENT AUTO 0.5 % (0.0-0.4); LYMPHOCYTES ABSOLUTE AUTO 0.61 K/uL (1.00-4.80); LYMPHOCYTES PERCENT AUTO 27.9 % (24.0-44.0); MEAN CORPUSCULAR HEMOGLOBIN 32.5 pg (28.0-32.0); MEAN CORPUSCULAR HGB CONC 32.1 g/dL (32.0-36.0); MEAN CORPUSCULAR VOLUME 101.3 fL (83.0-99.0); MEAN PLATELET VOLUME 11.4 fL (9.4-12.4); MONOCYTES ABSOLUTE AUTO 0.36 K/uL (0.00-0.80); MONOCYTES PERCENT AUTO 16.4 % (0.0-8.0); NEUTROPHILS ABSOLUTE AUTO 1.09 K/uL (1.80-7.70); NEUTROPHILS PERCENT AUTO 49.7 % (41.0-71.0); PLATELET COUNT,PLT 58 K/uL (150-400); RED BLOOD CELL COUNT 2.37 M/uL (4.52-5.90); WHITE BLOOD CELL COUNT,WBC 2.19 K/uL (3.9-11.3)
[2024-07-28 06:43] LABS: CALCIUM 7.5 mg/dL (8.5-10.1); CARBON DIOXIDE,CO2 22.7 mmol/L (21.0-32.0); CREATININE 0.7 mg/dL (0.8-1.3); EST CRCL DRUG DOSING (CG) 105.73 mL/min; MAGNESIUM 1.8 mg/dL (1.8-2.4); POTASSIUM,K 3.5 mmol/L (3.5-5.1)
[2024-07-28] MEDS: Ondansetron 4 MG/2 ML SDV IVPUSH PRN (10:29)
[2024-07-28] MEDS: Sodium Ferric Gluconate Cmplex 125 MG in Sodium Chloride 0.9% 100 ML IV ONE (11:17)
[2024-07-28 12:19] VITALS: BP 123/87
[2024-07-28 17:16] VITALS: PULSE 94
== END 2024-07-28 16:50 | disposition home or self-care (01) | DRG 372 ==
LOC: MW.ED 21:06 → MW.MS 07-26 03:19 → OBSVTOIN 07-27 10:35 → MW.MS 07-27 13:50
PROVIDERS: ADMIT Internal Medicine; ATTEND Internal Medicine
DX: A04.72 Enterocolitis due to Clostridium difficile, not specified as recurrent (principal); K62.5 Hemorrhage of anus and rectum; N17.9 Acute kidney failure, unspecified; R00.0 Tachycardia, unspecified; G43.909 Migraine, unspecified, not intractable, without status migrainosus; K52.9 Noninfective gastroenteritis and colitis, unspecified; E87.6 Hypokalemia; R79.1 Abnormal coagulation profile; R74.02 Elevation of levels of lactic acid dehydrogenase [LDH]; F10.90 Alcohol use, unspecified, uncomplicated; E83.42 Hypomagnesemia; R19.5 Other fecal abnormalities; E03.9 Hypothyroidism, unspecified; K59.00 Constipation, unspecified; J45.909 Unspecified asthma, uncomplicated; D64.9 Anemia, unspecified; Z79.84 Long term (current) use of oral hypoglycemic drugs; F41.0 Panic disorder [episodic paroxysmal anxiety]; E86.0 Dehydration; F32.A Depression, unspecified; F17.210 Nicotine dependence, cigarettes, uncomplicated; Z88.1 Allergy status to other antibiotic agents; Z88.6 Allergy status to analgesic agent; Z97.3 Presence of spectacles and contact lenses; Z90.49 Acquired absence of other specified parts of digestive tract; Z79.899 Other long term (current) drug therapy; Z79.890 Hormone replacement therapy
CPT/HCPCS: 0241U; 36415; 71046; 71275; 74177; 80048; 80053; 82803; 82947; 83550; 83605; 83735; 83880; 85014; 85018; 85025; 85379; 85610; 85652; 86140; 86850; 86900; 86901; 87045; 87046; 87324; 87449; 87493; 87899; 93005; 96361; 96365; 96368; 96375; 99285; 93010; 96366; 96372; 96376; A9270-GY; G0378; J0744; J1836; J2060; J2405; J2470; J2916; J3030; J3475; J3490; J7030; J7620-GY; Q9967

== ENCOUNTER 2024-08-18 14:00 | Inpatient (IN) | payer MEDICAID ==
[2024-08-18 14:28] LABS: BASOPHILS ABSOLUTE AUTO 0.06 K/uL (0.00-0.20); BASOPHILS PERCENT AUTO 0.7 % (0.0-1.0); EOSINOPHILS ABSOLUTE AUTO 0.16 K/uL (0.00-0.45); EOSINOPHILS PERCENT AUTO 1.9 % (0.0-6.0); HEMATOCRIT 31.6 % (42.0-52.0); HEMOGLOBIN 10.4 g/dL (14.0-18.0); IMMATURE GRAN ABSOLUTE AUTO 0.03 K/uL (0.00-0.05); IMMATURE GRAN PERCENT AUTO 0.4 % (0.0-0.4); LYMPHOCYTES ABSOLUTE AUTO 0.89 K/uL (1.00-4.80); LYMPHOCYTES PERCENT AUTO 10.7 % (24.0-44.0); MEAN CORPUSCULAR HEMOGLOBIN 30.7 pg (28.0-32.0); MEAN CORPUSCULAR HGB CONC 32.9 g/dL (32.0-36.0); MEAN CORPUSCULAR VOLUME 93.2 fL (83.0-99.0); MONOCYTES ABSOLUTE AUTO 1.07 K/uL (0.00-0.80); MONOCYTES PERCENT AUTO 12.8 % (0.0-8.0); NEUTROPHILS ABSOLUTE AUTO 6.13 K/uL (1.80-7.70); NEUTROPHILS PERCENT AUTO 73.5 % (41.0-71.0); PLATELET COUNT,PLT 141 K/uL (150-400); RED BLOOD CELL COUNT 3.39 M/uL (4.52-5.90); WHITE BLOOD CELL COUNT,WBC 8.34 K/uL (3.9-11.3)
[2024-08-18 15:00] LABS: A/G RATIO 0.7 (0.9-1.6); ALANINE AMINOTRANSFERASE,ALT 26 IU/L (14-63); ALBUMIN 2.5 g/dL (3.4-5.0); ALKALINE PHOSPHATASE 410 U/L (46-116); ASPARTATE AMNIOTRANSFERASE,AST 54 IU/L (15-37); BILIRUBIN TOTAL 0.6 mg/dL (0.2-1.0); BLOOD UREA NITROGEN,BUN 4 mg/dL (7.0-18.0); CALCIUM 8.4 mg/dL (8.5-10.1); CARBON DIOXIDE,CO2 23.7 mmol/L (21.0-32.0); CHLORIDE,CL 100 mmol/L (98-107); CREATININE 1.2 mg/dL (0.8-1.3); ESTIMATED GFR 75 mL/min (>60); GLUCOSE RANDOM 102 mg/dL (74-106); LIPASE 193 U/L (16-77); MAGNESIUM 1.3 mg/dL (1.8-2.4); POTASSIUM,K 2.8 mmol/L (3.5-5.1); PRO B-TYPE NATRIUR PEPT,BNPPRO 260 pg/mL (0-125); PROTEIN TOTAL,TP 6.3 g/dL (6.4-8.2); SODIUM,NA 134 mmol/L (136-148)
[2024-08-18 17:12] LABS: BILIRUBIN,URINE NEGATIVE (NEGATIVE); GLUCOSE,URINE NEGATIVE (NEGATIVE); KETONES,URINE TRACE mg/dL (NEGATIVE); LEUKOCYTE ESTERASE,URINE NEGATIVE (NEGATIVE); NITRITE,URINE NEGATIVE (NEGATIVE); OCCULT BLOOD,URINE NEGATIVE (NEGATIVE); PROTEIN,URINE NEGATIVE (NEGATIVE); UROBILINOGEN,URINE 0.2 EU/dL (<2.0)
[2024-08-18 17:19] LABS: APPEARANCE,URINE HAZY; COLOR,URINE DARK YELLOW
[2024-08-18] MEDS: Sodium Chloride 0.9% 1,000 ML IV ONE (17:34)
[2024-08-18] MEDS: Magnesium Sulfate/D5W 1 GM in Premix Bag 2 BAG IV ONE (17:37)
[2024-08-18] MEDS: Dicyclomine 10 MG Cap PO ONE (17:38)
[2024-08-18] MEDS: Ketorolac 30 MG/ML SDV IVPUSH ONE (17:40)
[2024-08-18 17:47] LABS: CORONAVIRUS COVID-19 NAA NEGATIVE (NEGATIVE); INFLUENZA A NAA NEGATIVE (NEGATIVE); INFLUENZA B NAA NEGATIVE (NEGATIVE)
[2024-08-18] MEDS: Iopamidol 755 MG/ML 500 ML Multipack Bottle IVPUSH STA (17:56)
[2024-08-18] MEDS: Potassium Chloride 10 MEQ in Premix Bag 1 BAG IV SCH (18:07)
[2024-08-18] MEDS: Nicotine 14 MG/24 Hr Patch TRDERM SCH (22:16)
[2024-08-18] MEDS: LORazepam 0.5 MG Tab PO PRN (22:17)
[2024-08-18] MEDS ORDERED: Albuterol 8 GM Inhaler INH PRN (22:32)
[2024-08-18] MEDS: Vancomycin 125 MG Cap PO SCH (23:10)
[2024-08-18] MEDS: QUEtiapine 25 MG Tab PO SCH (23:10)
[2024-08-18] MEDS: NS with KCl 40mEq 1,000 ML IV SCH (23:10)
[2024-08-18] MEDS: traZODone 50 MG Tab PO PRN (23:11)
[2024-08-18] MEDS: Escitalopram 10 MG Tab PO SCH (23:11)
[2024-08-19] MEDS: Cyclobenzaprine 10 MG Tab PO PRN (00:23)
[2024-08-19 06:24] LABS: BASOPHILS ABSOLUTE AUTO 0.08 K/uL (0.00-0.20); BASOPHILS PERCENT AUTO 1.8 % (0.0-1.0); EOSINOPHILS ABSOLUTE AUTO 0.35 K/uL (0.00-0.45); HEMATOCRIT 26.7 % (42.0-52.0); HEMOGLOBIN 8.8 g/dL (14.0-18.0); IMMATURE GRAN ABSOLUTE AUTO 0.01 K/uL (0.00-0.05); IMMATURE GRAN PERCENT AUTO 0.2 % (0.0-0.4); LYMPHOCYTES ABSOLUTE AUTO 1.26 K/uL (1.00-4.80); LYMPHOCYTES PERCENT AUTO 28.9 % (24.0-44.0); MEAN CORPUSCULAR HEMOGLOBIN 30.7 pg (28.0-32.0); MEAN PLATELET VOLUME 10.6 fL (9.4-12.4); MONOCYTES ABSOLUTE AUTO 0.81 K/uL (0.00-0.80); MONOCYTES PERCENT AUTO 18.6 % (0.0-8.0); NEUTROPHILS ABSOLUTE AUTO 1.85 K/uL (1.80-7.70); NEUTROPHILS PERCENT AUTO 42.5 % (41.0-71.0); PLATELET COUNT,PLT 120 K/uL (150-400); RED BLOOD CELL COUNT 2.87 M/uL (4.52-5.90); WHITE BLOOD CELL COUNT,WBC 4.36 K/uL (3.9-11.3)
[2024-08-19 06:52] LABS: A/G RATIO 0.6 (0.9-1.6); ALBUMIN 1.8 g/dL (3.4-5.0); BILIRUBIN TOTAL 0.5 mg/dL (0.2-1.0); CALCIUM 7.7 mg/dL (8.5-10.1); CARBON DIOXIDE,CO2 23.3 mmol/L (21.0-32.0); CREATININE 0.8 mg/dL (0.8-1.3); EST CRCL DRUG DOSING (CG) 83.32 mL/min; MAGNESIUM 1.6 mg/dL (1.8-2.4); PHOSPHORUS 3.2 mg/dL (2.6-4.7); POTASSIUM,K 3.4 mmol/L (3.5-5.1); PROTEIN TOTAL,TP 4.9 g/dL (6.4-8.2)
[2024-08-19] MEDS: Pantoprazole 40 MG Tab.CR PO SCH (07:08)
[2024-08-19] MEDS: Levothyroxine 100 MCG Tab PO SCH (07:08)
[2024-08-19] MEDS: Nicotine 14 MG/24 Hr Patch TRDERM SCH (10:30)
[2024-08-19] MEDS: Potassium Chloride 20 MEQ Tab.ER PO ONE (10:31)
[2024-08-19] MEDS: Magnesium Sulfate/Water Premix 2 GM in Premix Bag 1 BAG IV ONE (10:31)
[2024-08-19] MEDS: Acetaminophen 325 MG Tab PO PRN (10:39)
[2024-08-19] MEDS: Metoclopramide 10 MG/2 ML SDV IV PRN (10:42)
[2024-08-19] MEDS: SUMAtriptan 50 MG Tab PO ONE ×2 (12:55→19:09)
[2024-08-19] MEDS: Ondansetron 4 MG/2 ML SDV IVPUSH PRN (12:57)
[2024-08-19] MEDS: Lidocaine 4% 1 each Patch TOP SCH (20:34)
[2024-08-19] MEDS: Fidaxomicin 200 MG Tab PO SCH (21:38)
[2024-08-20 05:32] LABS: BASOPHILS ABSOLUTE AUTO 0.09 K/uL (0.00-0.20); BASOPHILS PERCENT AUTO 2.1 % (0.0-1.0); EOSINOPHILS ABSOLUTE AUTO 0.36 K/uL (0.00-0.45); EOSINOPHILS PERCENT AUTO 8.6 % (0.0-6.0); HEMATOCRIT 27.8 % (42.0-52.0); HEMOGLOBIN 9.1 g/dL (14.0-18.0); IMMATURE GRAN ABSOLUTE AUTO 0.01 K/uL (0.00-0.05); IMMATURE GRAN PERCENT AUTO 0.2 % (0.0-0.4); LYMPHOCYTES ABSOLUTE AUTO 1.31 K/uL (1.00-4.80); LYMPHOCYTES PERCENT AUTO 31.1 % (24.0-44.0); MEAN CORPUSCULAR HEMOGLOBIN 30.4 pg (28.0-32.0); MEAN CORPUSCULAR HGB CONC 32.7 g/dL (32.0-36.0); MONOCYTES ABSOLUTE AUTO 0.73 K/uL (0.00-0.80); MONOCYTES PERCENT AUTO 17.3 % (0.0-8.0); NEUTROPHILS ABSOLUTE AUTO 1.71 K/uL (1.80-7.70); NEUTROPHILS PERCENT AUTO 40.7 % (41.0-71.0); PLATELET COUNT,PLT 141 K/uL (150-400); RED BLOOD CELL COUNT 2.99 M/uL (4.52-5.90); WHITE BLOOD CELL COUNT,WBC 4.21 K/uL (3.9-11.3)
[2024-08-20 05:54] LABS: A/G RATIO 0.6 (0.9-1.6); ALBUMIN 1.9 g/dL (3.4-5.0); BILIRUBIN TOTAL 0.4 mg/dL (0.2-1.0); CALCIUM 7.7 mg/dL (8.5-10.1); CARBON DIOXIDE,CO2 20.8 mmol/L (21.0-32.0); CREATININE 0.6 mg/dL (0.8-1.3); EST CRCL DRUG DOSING (CG) 111.09 mL/min; MAGNESIUM 1.7 mg/dL (1.8-2.4); POTASSIUM,K 3.8 mmol/L (3.5-5.1); PROTEIN TOTAL,TP 4.9 g/dL (6.4-8.2)
[2024-08-20] MEDS: Magnesium Sulfate/Water Premix 2 GM in Premix Bag 1 BAG IV ONE (09:25)
[2024-08-20] MEDS: Lidocaine 4% 1 each Patch TOP SCH (21:40)
[2024-08-20] MEDS: SUMAtriptan 50 MG Tab PO PRN (22:25)
[2024-08-21 05:27] LABS: BASOPHILS ABSOLUTE AUTO 0.06 K/uL (0.00-0.20); BASOPHILS PERCENT AUTO 1.2 % (0.0-1.0); EOSINOPHILS PERCENT AUTO 5.9 % (0.0-6.0); HEMATOCRIT 33.1 % (42.0-52.0); HEMOGLOBIN 10.8 g/dL (14.0-18.0); IMMATURE GRAN ABSOLUTE AUTO 0.02 K/uL (0.00-0.05); IMMATURE GRAN PERCENT AUTO 0.4 % (0.0-0.4); LYMPHOCYTES ABSOLUTE AUTO 1.42 K/uL (1.00-4.80); LYMPHOCYTES PERCENT AUTO 27.8 % (24.0-44.0); MEAN CORPUSCULAR HEMOGLOBIN 30.6 pg (28.0-32.0); MEAN CORPUSCULAR HGB CONC 32.6 g/dL (32.0-36.0); MEAN CORPUSCULAR VOLUME 93.8 fL (83.0-99.0); MEAN PLATELET VOLUME 9.8 fL (9.4-12.4); MONOCYTES PERCENT AUTO 17.6 % (0.0-8.0); NEUTROPHILS ABSOLUTE AUTO 2.41 K/uL (1.80-7.70); NEUTROPHILS PERCENT AUTO 47.1 % (41.0-71.0); PLATELET COUNT,PLT 144 K/uL (150-400); RED BLOOD CELL COUNT 3.53 M/uL (4.52-5.90); WHITE BLOOD CELL COUNT,WBC 5.11 K/uL (3.9-11.3)
[2024-08-21 05:51] LABS: A/G RATIO 0.6 (0.9-1.6); ALBUMIN 2.1 g/dL (3.4-5.0); BILIRUBIN TOTAL 0.4 mg/dL (0.2-1.0); CALCIUM 8.4 mg/dL (8.5-10.1); CARBON DIOXIDE,CO2 24.3 mmol/L (21.0-32.0); CREATININE 0.7 mg/dL (0.8-1.3); EST CRCL DRUG DOSING (CG) 95.22 mL/min; MAGNESIUM 1.8 mg/dL (1.8-2.4); POTASSIUM,K 3.8 mmol/L (3.5-5.1); PROTEIN TOTAL,TP 5.7 g/dL (6.4-8.2)
[2024-08-21 14:43] LABS: NEUTROPHILS% 52 % (41-71)
[2024-08-21] MEDS: Melatonin 3 MG Tab PO SCH (20:48)
[2024-08-23 06:42] LABS: BASOPHILS ABSOLUTE AUTO 0.09 K/uL (0.00-0.20); BASOPHILS PERCENT AUTO 1.5 % (0.0-1.0); EOSINOPHILS ABSOLUTE AUTO 0.36 K/uL (0.00-0.45); EOSINOPHILS PERCENT AUTO 5.9 % (0.0-6.0); HEMATOCRIT 31.9 % (42.0-52.0); HEMOGLOBIN 10.3 g/dL (14.0-18.0); IMMATURE GRAN ABSOLUTE AUTO 0.03 K/uL (0.00-0.05); IMMATURE GRAN PERCENT AUTO 0.5 % (0.0-0.4); LYMPHOCYTES ABSOLUTE AUTO 1.63 K/uL (1.00-4.80); LYMPHOCYTES PERCENT AUTO 26.8 % (24.0-44.0); MEAN CORPUSCULAR HEMOGLOBIN 30.2 pg (28.0-32.0); MEAN CORPUSCULAR HGB CONC 32.3 g/dL (32.0-36.0); MEAN CORPUSCULAR VOLUME 93.5 fL (83.0-99.0); MEAN PLATELET VOLUME 10.3 fL (9.4-12.4); MONOCYTES ABSOLUTE AUTO 1.14 K/uL (0.00-0.80); MONOCYTES PERCENT AUTO 18.7 % (0.0-8.0); NEUTROPHILS ABSOLUTE AUTO 2.84 K/uL (1.80-7.70); NEUTROPHILS PERCENT AUTO 46.6 % (41.0-71.0); PLATELET COUNT,PLT 157 K/uL (150-400); RED BLOOD CELL COUNT 3.41 M/uL (4.52-5.90); WHITE BLOOD CELL COUNT,WBC 6.09 K/uL (3.9-11.3)
[2024-08-23 07:08] LABS: A/G RATIO 0.6 (0.9-1.6); ALBUMIN 2.2 g/dL (3.4-5.0); BILIRUBIN TOTAL 0.3 mg/dL (0.2-1.0); CALCIUM 8.7 mg/dL (8.5-10.1); CARBON DIOXIDE,CO2 25.6 mmol/L (21.0-32.0); CREATININE 0.7 mg/dL (0.8-1.3); EST CRCL DRUG DOSING (CG) 94.92 mL/min; POTASSIUM,K 4.4 mmol/L (3.5-5.1); PROTEIN TOTAL,TP 5.7 g/dL (6.4-8.2)
[2024-08-23 13:41] VITALS: BP 137/95; PULSE 93
== END 2024-08-23 15:00 | disposition home or self-care (01) | DRG 372 ==
LOC: MW.ED 14:00 → MW.MS 18:48 → OBSVTOIN 08-19 14:29 → MW.MS 08-19 14:30
PROVIDERS: ADMIT Internal Medicine; ATTEND Internal Medicine
DX: A04.72 Enterocolitis due to Clostridium difficile, not specified as recurrent (principal); E87.1 Hypo-osmolality and hyponatremia; K85.90 Acute pancreatitis without necrosis or infection, unspecified; Z66 Do not resuscitate; E86.0 Dehydration; G43.909 Migraine, unspecified, not intractable, without status migrainosus; D64.9 Anemia, unspecified; J45.909 Unspecified asthma, uncomplicated; F41.9 Anxiety disorder, unspecified; G35 Multiple sclerosis; F32.A Depression, unspecified; F17.210 Nicotine dependence, cigarettes, uncomplicated; E87.6 Hypokalemia; E83.42 Hypomagnesemia; D69.6 Thrombocytopenia, unspecified; R74.01 Elevation of levels of liver transaminase levels; R07.81 Pleurodynia; E03.9 Hypothyroidism, unspecified; Z79.51 Long term (current) use of inhaled steroids; Z88.8 Allergy status to other drugs, medicaments and biological substances; Z79.2 Long term (current) use of antibiotics; Z79.890 Hormone replacement therapy; Z98.890 Other specified postprocedural states; Z79.899 Other long term (current) drug therapy; Z90.49 Acquired absence of other specified parts of digestive tract; Z75.8 Other problems related to medical facilities and other health care
CPT/HCPCS: 0240U; 36415; 71046; 74177; 80053; 81003; 83690; 83735; 83880; 84100; 85025; 87045; 87046; 87324; 87389; 87449; 87493; 87899; 96365; 96375; 99285; 87147; 96368; A9270-GY; J1885; J2405; J2765; J3475; J3480; J7030; Q9967